=== PATIENT | female | born 1945 | race Caucasian/White ===

== ENCOUNTER 2021-03-16 21:25 | Outpatient (REF) | payer MEDICARE, SELFPAY ==
[2021-03-18 18:26] LABS: COVID-19 RT-PCR Result Not Detected ((See Note))
== END 2021-03-16 21:26 | disposition home or self-care (01) ==
LOC: LBN 21:25
PROVIDERS: Visit Provider Family Medicine
DX: Z20.822 Contact with and (suspected) exposure to COVID-19 (principal)
CPT/HCPCS: U0003

== ENCOUNTER 2021-04-09 15:14 | Outpatient (REF) | payer SELFPAY ==
[2021-04-09 16:12] LABS: Bilirubin Negative (Negative); Blood Moderate (Negative); Clarity Cloudy (Clear); Glucose Negative (Negative); Ketones Negative (Negative); Leukocyte Esterase Large (Negative); Nitrite Positive (Negative); Specific Gravity 1.025 (1.005-1.025); pH 7.5 (5-8)
[2021-04-09 16:19] LABS: Bacteria Many HPF (Negative); C & S Indicated? Yes; Casts Negative LPF (Negative); Crystals Negative HPF (Negative); Epithelial Cells Few HPF (Negative); Mucus Trace (Negative); WBC >50 HPF (0-5)
== END 2021-04-09 15:15 | disposition home or self-care (01) ==
LOC: LBN 15:14
PROVIDERS: Visit Provider Family Medicine
DX: N39.0 Urinary tract infection, site not specified (principal)
CPT/HCPCS: 87077; 81003; 81015; 87086; 87186

== ENCOUNTER 2021-04-29 11:55 | Outpatient (REF) | payer SELFPAY ==
[2021-04-29 14:40] LABS: Bilirubin Negative (Negative); Blood Negative (Negative); Clarity Clear (Clear); Glucose Negative (Negative); Ketones Negative (Negative); Leukocyte Esterase Negative (Negative); Nitrite Negative (Negative); Specific Gravity >= 1.030 (1.005-1.025); Urobilinogen 0.2 EU/dL (Up TO 0.2)
== END 2021-04-29 11:56 | disposition home or self-care (01) ==
LOC: LBN 11:55
PROVIDERS: Visit Provider Nurse Practitioner Family
DX: N39.0 Urinary tract infection, site not specified (principal)
CPT/HCPCS: 81003

== ENCOUNTER 2021-04-30 12:13 | Outpatient (REF) | payer SELFPAY ==
[2021-04-30 12:44] LABS: Abs Immature Grans 0.02 10^3/uL (0.0-0.06); Absolute Basophil Count 0.04 10^3/uL (0.0-0.2); Absolute Lymphocyte Count 1.06 10^3/uL (1.2-3.4); Absolute Monocyte Count 0.41 10^3/uL (0.1-0.8); Absolute Neutrophil Count 4.65 10^3/uL (1.2-6.7); Basophils % 0.6; Eosinophils % 1.6; HCT 34.6 % (36.0-46.0); HGB 10.2 g/dL (11.2-15.7); Immature Grans % 0.3; Lymphocytes % 16.9; MCH 24.6 pg (27.0-33.0); MCHC 29.5 % (32.0-36.0); MCV 83.6 fL (80-95); MPV 9.2 fL (8.0-11.0); Monocytes % 6.5; Neutrophils % 74.1; Nucleated RBC 0 %; Platelet Count 368 10^3/uL (130-400); RBC 4.14 10^6/uL (3.93-5.22); RDW 16.3 % (11.7-14.6); RDW-SD 49.8 fL; WBC 6.28 10^3/uL (4.4-10.8)
[2021-04-30 13:14] LABS: ALT 26 U/L (14-59); AST 17 U/L (15-37); Albumin 3.1 g/dL (3.4-5.0); Alkaline Phosphatase 98 U/L (46-116); Anion Gap 7.5 mmol/L (3-11); BUN 21 mg/dL (7-18); Bilirubin, Total 0.2 mg/dL (0.2-1.0); CO2 30.5 mmol/L (21.0-32.0); Calcium 8.8 mg/dL (8.5-10.1); Chloride 109 mmol/L (98-107); Estimated GFR 54.35 (mL/min/1.73m2); Glucose 149 mg/dL (74-106); Potassium 3.6 mmol/L (3.5-5.1); Sodium 147 mmol/L (136-145); Total Protein 6.5 g/dL (6.4-8.2)
== END 2021-04-30 12:14 | disposition home or self-care (01) ==
LOC: LBN 12:13
PROVIDERS: Visit Provider Nurse Practitioner Family
DX: N17.9 Acute kidney failure, unspecified (principal); M62.81 Muscle weakness (generalized)
CPT/HCPCS: 80053; 85025

== ENCOUNTER 2021-05-07 02:38 | Outpatient (CLI) | payer MEDICARE, BC, SELFPAY ==
--- NOTE | 2021-05-07 09:15 | DI.RAD_ITS ---
Exam(s) XR CHEST 2V PA LATERAL EXAM: XR CHEST 2V PA LATERAL CLINICAL HISTORY: LOW OXYGEN AND COUGH R05.9 TECHNIQUE: 2D digital imaging was performed. COMPARISON: No exams were available for comparison FINDINGS: MEDIASTINUM: Normal. HEART: Normal. PULMONARY VASCULATURE: Normal. LUNGS: Patchy infiltrate left upper lobe. Question of increased density in the right upper lobe. PLEURAL SPACE: No pneumothorax. Question tiny left pleural effusion. BONE:Unremarkable for age. IMPRESSION: Left upper lobe infiltrate. Question tiny left pleural effusion and question of patchy right upper l obe infiltrate.. DATA REPOSITORY: RADIATION DOSE DELIVERED:
== END 2021-05-07 02:58 ==
PROVIDERS: Visit Provider Nurse Practitioner Family
DX: R05.8 Other specified cough (principal); R09.02 Hypoxemia; R91.8 Other nonspecific abnormal finding of lung field
CPT/HCPCS: 71046

== ENCOUNTER 2021-05-24 14:20 | Outpatient (REF) | payer MEDICARE, SELFPAY ==
[2021-05-24 19:59] LABS: Abs Immature Grans 0.01 10^3/uL (0.0-0.06); Absolute Basophil Count 0.06 10^3/uL (0.0-0.2); Absolute Eosinophil Count 0.05 10^3/uL (0.0-0.7); Absolute Lymphocyte Count 1.94 10^3/uL (1.2-3.4); Absolute Monocyte Count 0.45 10^3/uL (0.1-0.8); Absolute Neutrophil Count 5.68 10^3/uL (1.2-6.7); Basophils % 0.7; Eosinophils % 0.6; HCT 46.8 % (36.0-46.0); HGB 12.9 g/dL (11.2-15.7); Immature Grans % 0.1; Lymphocytes % 23.7; MCH 23.5 pg (27.0-33.0); MCHC 27.6 % (32.0-36.0); MCV 85.1 fL (80-95); MPV 11.5 fL (8.0-11.0); Monocytes % 5.5; Neutrophils % 69.4; Nucleated RBC 0 %; Platelet Count 274 10^3/uL (130-400); RDW 17.8 % (11.7-14.6); RDW-SD 53.1 fL; WBC 8.19 10^3/uL (4.4-10.8)
[2021-05-24 20:09] LABS: Bilirubin Moderate (Negative); Blood Trace-intact (Negative); Clarity Cloudy (Clear); Glucose Negative (Negative); Ketones 15 mg/dL (Negative); Leukocyte Esterase Negative (Negative); Nitrite Negative (Negative); Specific Gravity >= 1.030 (1.005-1.025); pH 5.5 (5-8)
[2021-05-24 20:23] LABS: ALT 21 U/L (14-59); AST 18 U/L (15-37); Albumin 3.2 g/dL (3.4-5.0); Alkaline Phosphatase 113 U/L (46-116); Anion Gap 13.3 mmol/L (3-11); BUN 34 mg/dL (7-18); Bilirubin, Total 0.3 mg/dL (0.2-1.0); CO2 28.7 mmol/L (21.0-32.0); CREATININE 1.2 mg/dL (0.55-1.02); Calcium 9.1 mg/dL (8.5-10.1); Chloride 125 mmol/L (98-107); Epithelial Cells Few HPF (Negative); Estimated GFR 44.04 (mL/min/1.73m2); Glucose 100 mg/dL (74-106); Potassium 3.6 mmol/L (3.5-5.1); Total Protein 6.9 g/dL (6.4-8.2)
[2021-05-24 20:24] LABS: Bacteria Moderate HPF (Negative); C & S Indicated? Yes; Casts Negative LPF (Negative); Crystals Few Amorphous HPF (Negative); Mucus Negative (Negative)
[2021-05-24 20:26] LABS: Diff Comment RBC Morph Reviewed
[2021-05-24 20:27] LABS: Hypochromasia 1+
[2021-05-24 20:35] LABS: Sodium 167 mmol/L (136-145)
== END 2021-05-24 14:21 | disposition home or self-care (01) ==
LOC: LBN 14:20
PROVIDERS: Visit Provider Nurse Practitioner Family
DX: N17.9 Acute kidney failure, unspecified (principal); R50.81 Fever presenting with conditions classified elsewhere; R41.0 Disorientation, unspecified
CPT/HCPCS: 80053; 81003; 81015; 85025; 87086

== ENCOUNTER 2021-05-26 10:07 | Outpatient (REF) | payer SELFPAY ==
[2021-05-26 12:48] LABS: Anion Gap 13.3 mmol/L (3-11); BUN 34 mg/dL (7-18); CO2 27.7 mmol/L (21.0-32.0); CREATININE 1.2 mg/dL (0.55-1.02); Chloride 120 mmol/L (98-107); Estimated GFR 44.04 (mL/min/1.73m2); Glucose 202 mg/dL (74-106); Potassium 3.2 mmol/L (3.5-5.1)
[2021-05-26 12:51] LABS: Sodium 161 mmol/L (136-145)
== END 2021-05-26 10:08 | disposition home or self-care (01) ==
LOC: LBN 10:07
PROVIDERS: Visit Provider Family Medicine
DX: N17.9 Acute kidney failure, unspecified (principal)
CPT/HCPCS: 80048

== ENCOUNTER 2021-05-28 19:30 | Outpatient (REF) | payer SELFPAY ==
[2021-05-28 19:50] LABS: Anion Gap 7.4 mmol/L (3-11); BUN 16 mg/dL (7-18); CO2 30.6 mmol/L (21.0-32.0); CREATININE 0.9 mg/dL (0.55-1.02); Calcium 8.5 mg/dL (8.5-10.1); Chloride 110 mmol/L (98-107); Glucose 83 mg/dL (74-106); Potassium 3.2 mmol/L (3.5-5.1); Sodium 148 mmol/L (136-145)
== END 2021-05-28 19:31 | disposition home or self-care (01) ==
LOC: LBN 19:30
PROVIDERS: Visit Provider Family Medicine
DX: E87.0 Hyperosmolality and hypernatremia (principal)
CPT/HCPCS: 80048

== ENCOUNTER 2021-06-09 01:07 | Outpatient (CLI) | payer MEDICARE, BC, SELFPAY ==
--- NOTE | 2021-06-09 15:19 | DI.CT_ITS ---
Exam(s) CT HEAD WO EXAM: CT HEAD WO CLINICAL HISTORY: ALTERED MENTAL STATUS. TECHNIQUE: Imaging Protocol: Axial computed tomography images with coronal and sagittal reformatted images were created and reviewed COMPARISON: No exams were available for comparison FINDINGS: Ventricles and Extra axial spaces: Normal in size and morphology for the patient's age. Hemorrhage: None. Cerebral parenchyma: No evidence of an acute territorial infarct. There are areas of decreased atten uation in the white matter consistent with small vessel ischemic disease. Midline shift: None. Brainstem/Cerebellum: Normal. Calvarium: Normal. Visualized Paranasal sinuses/Mastoids: Clear. Soft Tissues: Unremarkable. IMPRESSION: No acute intracranial process. RADIATION DOSE DELIVERED: 637.45mGy.cm Total DLP DATA REPOSITORY: All CT scans at this facility are submitted to the National Radiology Data Registry (NRDR) Dose Index Registry (DIR) with the [employer] ([employer]). RADIATION OPTIMIZATION: All CT scans at this facility use at least one of these dose optimization te chniques: automated exposure control; mA and/or kV adjustment per patient size (includes targeted exa ms where dose is matched to clinical indication); or iterative reconstruction.
== END 2021-06-09 01:27 ==
PROVIDERS: Visit Provider Family Medicine
DX: R41.82 Altered mental status, unspecified (principal); X58.XXXA Exposure to other specified factors, initial encounter; E87.0 Hyperosmolality and hypernatremia; B37.9 Candidiasis, unspecified; N17.9 Acute kidney failure, unspecified
CPT/HCPCS: 80048; 70450; 85025

== ENCOUNTER 2021-06-19 12:05 | Inpatient (IN) | payer MEDICARE, BC, SELFPAY ==
[2021-06-19] VITALS (37 sets, daily range): BP systolic 95–127; BP diastolic 60–81; PULSE 74–97; RESP 7–24; TEMP 36.5–37.3; O2SAT 87–99
--- NOTE | 2021-06-19 12:15 | DI.CT_ITS ---
Exam(s) CT HEAD WO EXAM: CT HEAD WO CLINICAL HISTORY: AMS. TECHNIQUE: Imaging Protocol: Axial computed tomography images with coronal and sagittal reformatted images were created and reviewed COMPARISON: CT CT HEAD WO from 06/09/2021 FINDINGS: Hemorrhage: None. Cerebral parenchyma: Atrophy. White matter changes consistent with small vessel disease. Midline shift: None. Brainstem/Cerebellum: Normal. Calvarium: Normal. Visualized Paranasal sinuses/Mastoids: Clear. Ventricles and Extra axial spaces: Stable mild ventricular dilatation IMPRESSION: Stable atrophy and white matter changes. No acute abnormality. RADIATION DOSE DELIVERED: 618.8mGy.cm Total DLP 618.8mGy.cm Total DLP DATA REPOSITORY: All CT scans at this facility are submitted to the National Radiology Data Registry (NRDR) Dose Index Registry (DIR) with the [employer] ([employer]). RADIATION OPTIMIZATION: All CT scans at this facility use at least one of these dose optimization te chniques: automated exposure control; mA and/or kV adjustment per patient size (includes targeted exa ms where dose is matched to clinical indication); or iterative reconstruction.
--- NOTE | 2021-06-19 12:22 | DI.RAD_ITS ---
Exam(s) XR CHEST 1V IN DI DEPT EXAM: XR CHEST 1V IN DI DEPT CLINICAL HISTORY: AMS TECHNIQUE: 2D digital imaging was performed. COMPARISON: CR XR CHEST 2V PA LATERAL from 05/07/2021 FINDINGS: LUNGS: New densities left lung base. Vague densities left upper lobe with some improvement from the previous exam. Right lung clear. No pleural abnormality seen. HEART: Normal. MEDIASTINUM: Normal. BONES: Unremarkable. IMPRESSION: Left lower lobe infiltrate. DATA REPOSITORY: RADIATION DOSE DELIVERED:
[2021-06-19] MEDS: Normal Saline 1,000 ML 1000 ML IV (12:30)
[2021-06-19 12:42] LABS: Source Nasal/Nares
[2021-06-19 13:21] LABS: Bilirubin Moderate (Negative); Blood Small (Negative); Clarity Clear (Clear); Glucose Negative (Negative); Ketones Trace mg/dL (Negative); Leukocyte Esterase Negative (Negative); Nitrite Positive (Negative); Specific Gravity >= 1.030 (1.005-1.025); pH 5.5 (5-8)
[2021-06-19 13:29] LABS: COVID-19 PCR Negative (Negative)
[2021-06-19 13:37] LABS: Bacteria Many HPF (Negative); Crystals Negative HPF (Negative); Epithelial Cells Few HPF (Negative); Mucus Heavy (Negative); RBC 20-50 HPF (0-2); WBC >50 HPF (0-5)
[2021-06-19 13:38] LABS: C & S Indicated? Yes
[2021-06-19 13:55] LABS: Abs Immature Grans 0.05 10^3/uL (0.0-0.06); Absolute Basophil Count 0.03 10^3/uL (0.0-0.2); Absolute Eosinophil Count 0.01 10^3/uL (0.0-0.7); Absolute Lymphocyte Count 1.24 10^3/uL (1.2-3.4); Absolute Monocyte Count 0.64 10^3/uL (0.1-0.8); Absolute Neutrophil Count 7.06 10^3/uL (1.2-6.7); Basophils % 0.3; Eosinophils % 0.1; HCT 50.5 % (36.0-46.0); Immature Grans % 0.6; Lymphocytes % 13.7; MCHC 27.7 % (32.0-36.0); MCV 86.6 fL (80-95); MPV 12.2 fL (8.0-11.0); Monocytes % 7.1; Neutrophils % 78.2; Nucleated RBC 0 %; Platelet Count 217 10^3/uL (130-400); RBC 5.83 10^6/uL (3.93-5.22); RDW 20.9 % (11.7-14.6); RDW-SD 62.8 fL; WBC 9.03 10^3/uL (4.4-10.8)
--- NOTE | 2021-06-19 13:58 | W.ED.GENAD ---
Discharge Plan Disposition Patient Disposition: [facility] INPATIENT Condition: Serious Discharge Details Clinical Impression: Hypernatremia, Acute UTI, Elevated troponin Primary Care Provider: Matti Li ED Provider: Stuart [facility] Home Meds and New Rx's Prescriptions: No Action carbidopa-levodopa [Sinemet] 25-100 mg tablet 1 tab PO TID Qty: 90 RF: 0 coenzyme Q10 100 mg capsule 100 mg PO DAILY RF: 0 Fleet Enema 19-7 gram/118 mL enema 118 ml NM ONCE PRNRF: 0 bisacodyl [Dulcolax (bisacodyl)] 10 mg suppository 10 mg NM ONCE PRNRF: 0 latanoprost 0.005 % drops 1 drp ophthalmic (eye) QPM RF: 0 lorazepam 0.5 mg tablet 0.5 mg PO DAILY RF: 0 lorazepam 0.5 mg tablet 0.5 mg PO BID RF: 0 magnesium hydroxide [Dulcolax (magnesium hydroxide)] 400 mg/5 mL suspension 30 ml PO DAILY PRNRF: 0 mirtazapine 15 mg tablet 15 mg PO QHS RF: 0 omeprazole 20 mg tablet,delayed release (DR/EC) 20 mg PO BID RF: 0 risperidone [Risperdal] 1 mg tablet 1 mg PO BID RF: 0 sertraline 50 mg tablet 50 mg PO DAILY RF: 0 docusate sodium 50 mg Tablet 100 mg PO BID RF: 0 Medical Decision Making This is a 75-year-old female being sent to the ER from local [facility] for concern of dehydration. Sister reports that she has catatonic episodes when not taking her psychiatric medications. Reports concern that she is not eating or taking her medications as directed and not receiving the care that she requires. Patient opens her eyes but is nonverbal with me. Very difficult to obtain HPI or review of symptoms from the patient herself. O2 sat is 89% upon presentation, placed on 2 L nasal cannula. Given her presentation, plan is to obtain IV access and give IV fluid, initiate cardiac work-up including CT imaging of her brain given the potential altered mental status. As soon as her Covid swab was negative, patient's sister was allowed back in the exam room. At this time patient was witnessed moving all extremities and speaking with her sister Apparently there was an issue with the initial blood draw, lab had to, redraw the patient. This in turn delayed laboratory values and care Laboratory values reveal a white blood cell count of 9.03 hemoglobin 14.0 hematocrit 50.5 platelet count 217. Lactate of 1.8, sodium critical at 175. Creatinine of 1.5 magnesium 2.7 troponin 64 TSH 1.02 urine reveals positive nitrate, greater than 50 white cells. Culture pending. Given her UTI blood culture obtained and will give 1 g IV Rocephin Head CT is unremarkable Chest X ray read by radiology as concern for left lower lobe infiltrate. Patient already receiving IV Rocephin, awaiting procalcitonin, plan is to admit her given her hypernatremia, elevated troponin, UTI, can follow her closely and add on additional antibiotics if indicated. Case discussed with Dr. Cross who is agreeable to admission and will write admission orders Medical Records Medical records reviewed: Yes I reviewed the patient's medical records. Imaging Data Radiologic Study: Attestation: I personally reviewed and interpreted this imaging study as follows: Imaging: CT Scan Radiologist's impression: PROCEDURE INFORMATION: Exam: CT Head Without Contrast Exam date and time: 06/19/2021 12:25 PM Age: 75 years old Clinical indication: Altered mental status/memory loss TECHNIQUE: Imaging protocol: Computed tomography of the head without contrast. COMPARISON: CT HEAD WO 06/09/2021 3:16 PM FINDINGS: Brain: Cerebral volume loss noted. Scattered areas of decreased attenuation in the deep periventricular white matter consistent with small vessel ischemic change. No evidence for acute intracranial hemorrhage. Cerebral ventricles: No ventriculomegaly. Paranasal sinuses: Visualized sinuses are unremarkable. No fluid levels. Mastoid air cells: Visualized mastoid air cells are well aerated. Bones/joints: Unremarkable. No acute fracture. Soft tissues: Unremarkable. IMPRESSION: Senescent changes noted. No acute intracranial abnormality. Radiologic Study #2: Attestation: I personally reviewed and interpreted this imaging study as follows: Imaging: X-Ray Radiologist's impression: PROCEDURE INFORMATION: Exam: XR Chest Exam date and time: 06/19/2021 1:59 PM Age: 75 years old Clinical indication: Cough TECHNIQUE: Imaging protocol: XR of the chest. Views: 1 view. COMPARISON: CR XR CHEST 2V PA LATERAL 05/07/2021 9:03 AM FINDINGS: Lungs: Previously seen left upper lobe infiltrate appears resolved. There are some minimal coarse increased left lower lobe markings seen medially. There is some mild hazy pleural opacity seen in the left mid and upper lung laterally. Pleural spaces: See Lungs finding. Heart/Mediastinum: Unremarkable. No cardiomegaly. Bones/joints: Unremarkable. Soft tissues: Right chest wall surgical clip seen laterally. IMPRESSION: Concern for left lower lobe infiltrate. Possible pleural thickening left upper lobe. Lab Data Lab results reviewed: Yes I reviewed the patient's lab results. Labs: 06/19/21 14:41 Blood Blood Culture - Pending 06/19/21 14:41 Blood Blood Culture - Pending 06/19/21 12:50 Urine - Reflex from Ua Urine Culture - Pending Laboratory Tests Range/Units 06/19/21 06/19/21 06/19/21 12:32 12:42 12:42 WBC Cancelled RBC Cancelled Hgb Cancelled Hct Cancelled MCV Cancelled MCH Cancelled MCHC Cancelled RDW Cancelled Plt Count Cancelled MPV Cancelled Immature Gran % Cancelled Neutrophils % Cancelled Band Neutrophils % Cancelled Lymphocytes % Cancelled Atypical Lymphs % Cancelled Monocytes % Cancelled Eosinophils % Cancelled Basophils % Cancelled Metamyelocytes % Cancelled Myelocytes % Cancelled Promyelocytes % Cancelled Other Cells % Cancelled Nucleated RBC % Cancelled Absolute Neutrophils Cancelled Absolute Lymphocytes Cancelled Absolute Monocytes Cancelled Absolute Eosinophils Cancelled Absolute Basophils Cancelled RBC Morphology Cancelled Polychromasia Cancelled Hypochromasia Cancelled Poikilocytosis Cancelled Basophilic Stippling Cancelled Anisocytosis Cancelled Microcytosis Cancelled Macrocytosis Cancelled Spherocytes Cancelled Tear Drop Cells Cancelled Ovalocytes Cancelled Stomatocytes Cancelled [place] Bodies Cancelled Stryker Cells/Echinocytes Cancelled Acanthocytes (Spur) Cancelled Schistocytes Cancelled VBG Lactate (0.6-1.4) mmol/L Sodium Cancelled Potassium Cancelled Chloride Cancelled Carbon Dioxide Cancelled Anion Gap Cancelled BUN Cancelled Creatinine Cancelled Estimated GFR/1.73 m2 Cancelled Glucose Cancelled Calcium Cancelled Magnesium Cancelled Total Bilirubin Cancelled AST Cancelled ALT Cancelled Alkaline Phosphatase Cancelled Troponin I Cancelled Total Protein Cancelled Albumin Cancelled TSH Cancelled Urine Color (Yellow) Urine Clarity (Clear) Urine pH (5-8) Ur Specific [place] (1.005-1.025) Urine Protein (Negative) mg/dL Urine Ketones (Negative) mg/dL Urine Blood (Negative) Urine Nitrite (Negative) Urine Bilirubin (Negative) Urine Urobilinogen (Up TO 0.2) EU/dL Ur Leukocyte Esterase (Negative) Urine RBC (0-2) HPF Urine WBC (0-5) HPF Ur Epithelial Cells (Negative) HPF Urine Crystals (Negative) HPF Urine Bacteria (Negative) HPF Urine Casts (Negative) LPF Urine Mucus (Negative) Ur Culture Indicated? Urine Glucose (Negative) mg/dL COVID-19 Source Nasal/Nares SARS-CoV-2 (PCR) (Negative) Negative Range/Units 06/19/21 06/19/21 06/19/21 12:50 13:47 13:47 WBC 9.03 RBC 5.83 H Hgb 14.0 Hct 50.5 H MCV 86.6 MCH 24.0 L MCHC 27.7 L RDW 20.9 H Plt Count 217 MPV 12.2 H Immature Gran % 0.6 Neutrophils % 78.2 Band Neutrophils % Lymphocytes % 13.7 Atypical Lymphs % Monocytes % 7.1 Eosinophils % 0.1 Basophils % 0.3 Metamyelocytes % Myelocytes % Promyelocytes % Other Cells % Nucleated RBC % 0 Absolute Neutrophils 7.06 H Absolute Lymphocytes 1.24 Absolute Monocytes 0.64 Absolute Eosinophils 0.01 Absolute Basophils 0.03 RBC Morphology See Below Polychromasia Hypochromasia Poikilocytosis Basophilic Stippling Anisocytosis 1+ Microcytosis Macrocytosis Spherocytes Tear Drop Cells Ovalocytes Stomatocytes [place] Bodies Stryker Cells/Echinocytes Acanthocytes (Spur) Schistocytes VBG Lactate (0.6-1.4) mmol/L Sodium 175 H* Potassium 3.5 Chloride 134 H Carbon Dioxide 29.3 Anion Gap 11.7 H BUN 40 H Creatinine 1.5 H Estimated GFR/1.73 m2 34.04 Glucose 115 H Calcium 8.4 L Magnesium 2.7 H Total Bilirubin 0.4 AST 12 L ALT 7 L Alkaline Phosphatase 95 Troponin I 64 H* Total Protein 6.7 Albumin 2.5 L TSH 1.02 Urine Color (Yellow) Yellow Urine Clarity (Clear) Clear Urine pH (5-8) 5.5 Ur Specific [place] (1.005-1.025) >= 1.030 H Urine Protein (Negative) mg/dL 30 H Urine Ketones (Negative) mg/dL Trace H Urine Blood (Negative) Small H Urine Nitrite (Negative) Positive H Urine Bilirubin (Negative) Moderate H Urine Urobilinogen (Up TO 0.2) EU/dL 1.0 H Ur Leukocyte Esterase (Negative) Negative Urine RBC (0-2) HPF 20-50 H Urine WBC (0-5) HPF >50 H Ur Epithelial Cells (Negative) HPF Few Urine Crystals (Negative) HPF Negative Urine Bacteria (Negative) HPF Many Urine Casts (Negative) LPF Comment Urine Mucus (Negative) Heavy Ur Culture Indicated? Yes Urine Glucose (Negative) mg/dL Negative COVID-19 Source SARS-CoV-2 (PCR) (Negative) Range/Units 06/19/21 06/19/21 15:05 15:05 WBC RBC Hgb Hct MCV MCH MCHC RDW Plt Count MPV Immature Gran % Neutrophils % Band Neutrophils % Lymphocytes % Atypical Lymphs % Monocytes % Eosinophils % Basophils % Metamyelocytes % Myelocytes % Promyelocytes % Other Cells % Nucleated RBC % Absolute Neutrophils Absolute Lymphocytes Absolute Monocytes Absolute Eosinophils Absolute Basophils RBC Morphology Polychromasia Hypochromasia Poikilocytosis Basophilic Stippling Anisocytosis Microcytosis Macrocytosis Spherocytes Tear Drop Cells Ovalocytes Stomatocytes [place]at [place] Bodies Jayson Cells/Echinocytes Acanthocytes (Spur) Schistocytes VBG Lactate (0.6-1.4) mmol/L 1.8 H Sodium 177 H* Potassium 3.1 L Chloride 134 H Carbon Dioxide 28.6 Anion Gap 14.4 H BUN 39 H Creatinine 1.2 H Estimated GFR/1.73 m2 44.04 Glucose 118 H Calcium 8.8 Magnesium Total Bilirubin AST ALT Alkaline Phosphatase Troponin I Total Protein Albumin TSH Urine Color (Yellow) Urine Clarity (Clear) Urine pH (5-8) Ur Specific [place] (1.005-1.025) Urine Protein (Negative) mg/dL Urine Ketones (Negative) mg/dL Urine Blood (Negative) Urine Nitrite (Negative) Urine Bilirubin (Negative) Urine Urobilinogen (Up TO 0.2) EU/dL Ur Leukocyte Esterase (Negative) Urine RBC (0-2) HPF Urine WBC (0-5) HPF Ur Epithelial Cells (Negative) HPF Urine Crystals (Negative) HPF Urine Bacteria (Negative) HPF Urine Casts (Negative) LPF Urine Mucus (Negative) Ur Culture Indicated? Urine Glucose (Negative) mg/dL COVID-19 Source SARS-CoV-2 (PCR) (Negative) ECG Data Attestation: I personally reviewed and interpreted this ECG (s) as follows: Interpretation: Please see official report by Dr. Cook. Sinus rhythm, ventricular rate of 87. Nonspecific ST depression, no STEMI. HPI General Mode of arrival: EMS. Date/Time Provider Initiated Documentation: 06/19/21 12:18. Limitations to Documentation: altered mental status. Information obtained by: family (Sister) and EMS. HPI Narrative: This is a 75-year-old female who is a full code, presenting from [facility] via EMS, past medical history that includes bipolar type II disorder, palliative care patient, anxiety, Parkinson's, sent to the ER from rehab for concern of dehydration, they were unable to obtain IV access there. I was able to speak with patient sister who was present, reports the patient fell back in March and has had a steady decline ever since. When she is not taking her psychiatric medications she does have these catatonic episodes. She is concerned that there have been multiple medication changes over the past couple of months, wonders if she is taking any medications as directed, and does report decreased p.o. intake. She states just a couple of days ago she was talkative but now is really not talkative at all. She states that she is concerned that she is not receiving the level of care that she requires at the rehab facility and is trying to get her into another rehab facility. Patient blinks, opens her eyes, but is not verbal with me. Related Data Home Medications Medication Instructions Recorded Confirmed bisacodyl 10 mg rectal suppository 10 mg NM ONCE PRN 04/20/21 06/16/21 coenzyme Q10 100 mg capsule 100 mg PO DAILY 04/20/21 06/19/21 latanoprost 0.005 % eye drops 1 drp OPHTHALMIC (EYE) QPM ml 04/20/21 06/19/21 lorazepam 0.5 mg tablet 0.5 mg PO BID tab 04/20/21 06/19/21 lorazepam 0.5 mg tablet 0.5 mg PO DAILY 04/20/21 06/19/21 magnesium hydroxide 400 mg/5 mL 30 ml PO DAILY PRN ml 04/20/21 06/16/21 oral suspension mirtazapine 15 mg tablet 15 mg PO QHS 04/20/21 06/19/21 omeprazole 20 mg tablet,delayed 20 mg PO BID 04/20/21 06/19/21 release risperidone 1 mg tablet 1 mg PO BID 04/20/21 06/19/21 sodium phosphates 19 gram-7 118 ml NM ONCE PRN 04/20/21 06/16/21 gram/118 mL enema carbidopa 25 mg-levodopa 100 mg 1 tab PO TID #90 tab 06/16/21 06/19/21 tablet docusate sodium 100 mg PO BID 06/19/21 06/19/21 sertraline 50 mg PO DAILY 06/19/21 06/19/21 Previous Rx's Medication Instructions Recorded carbidopa 25 mg-levodopa 100 mg 1 tab PO TID #90 tab 06/16/21 tablet Allergies Allergy/AdvReac Type Severity Reaction Status Date / Time erythromycin base Allergy Intermediate Verified 06/19/21 12:53 ragweed pollen Allergy Intermediate Verified 06/19/21 12:53 Sulfa (Sulfonamide Allergy Intermediate Verified 06/19/21 12:53 Antibiotics) General Stated Complaint: AMS/LOC RADHA: 2 Review of Systems Unobtainable due to mental status PFSH All Active Problems (Updated 06/19/21 @ 15:42 by FARNAZ Ruelas) Hypernatremia (Acute) Acute UTI (Acute) Elevated troponin (Acute) Bipolar 2 disorder, major depressive episode (Chronic) Dr Coates, [facility] office Health care proxy on file (Acute) Flat affect (Acute) Shuffling gait (Acute) Tremor (Acute) History of rhabdomyolysis (Acute) 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 of catatonia hospitalized for same in past Psychiatric illness (Chronic) for many years 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 Brother No problems noted. Sister No problems noted. 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 Pets and animals: Yes Pets and animals: dog(s) Current gender identity: female What is your relationship status?: never How often do you talk on the phone with friends or family?: three or more times per week How often do you get together with friends or relatives?: twice per week Panel score (0-1 are the most socially isolated patients): 1 What type of physical activity do you participate in: none and sedentary lifestyle Special ayaka needs: No Seatbelt use: always Working smoke detector in home: Yes Fire extinguisher in home: Yes In current or past relationships, have you been: made to feel afraid Do you feel safe in your relationship?: Yes Additional Social history: Tatyana spoke very little. Her roommate says she says only a handful of words all day. When I was present, her sister Bryan called. She told me that she speaks to Tatyana every day. She explained that Tatyana had recently moved into a new apartment. She fell and was down for some hours. She went to the local hospital and was found to have rhabdo and SHEREEN. Tatyana falls frequently. Bryan asks if her Parkinson's Disease is due to psychiatric medications. Tatyana has struggled with mental illness for years. She has a psychiatrist. She has been hospitalized multiple times in the past. She is prone to episodes of catatonia. Bryan is very committed to advocating for her sister and providing as much care as she can, given limitations of a bad back. (NO lifting,etc). Exam Const General: comfortable, no acute distress and frail appearing Orientation: alert, awake and oriented to person HENAK Head: normal to inspection, normocephalic and atraumatic Face and sinus: normal facial exam Mouth: moist mucous membranes and moist mucous membranes abnormal (dry) Eyes General: appearance normal, both eyes and all related structures Conjunctivae: conjunctivae normal Neck Neck: normal visual inspection, no lymphadenopathy, trachea midline and supple Resp Effort & Inspection: normal respiratory effort and able to speak in complete sentences Auscultation: diminished lung sounds bilaterally in the lower lung ferro Cardio Rate: regular rate Rhythm: regular rhythm GI Inspection: normal to inspection Palpation: soft and nontender Auscultation: normal bowel sounds Back/Spine/Pelvis Back: No back tenderness Skin General skin exam: no rashes or lesions noted Neuro General: patient alert, patient awake, moves all extremities and no focal motor deficits Extrem General: normal to inspection and capillary refill normal Psych Appearance: grossly normal Mental Status: mental status grossly normal Course Vital Signs Vital signs: Vital Signs Temperature 37.3 C 06/19/21 12:07 Pulse 97 H 06/19/21 12:07 Respiratory Rate 21 06/19/21 12:07 Blood Pressure 113/74 06/19/21 12:07 Pulse Oximetry 87 L 06/19/21 12:07 Temperature 37.3 C 06/19/21 12:07 Temperature Source Oral 06/19/21 12:07 Pulse 80 06/19/21 13:31 Pulse 82 06/19/21 13:50 Respiratory Rate 9 L 06/19/21 13:50 Respiratory Effort 06/19/21 13:46 Respiratory Pattern Normal 06/19/21 13:46 Blood Pressure 112/61 06/19/21 13:31 Blood Pressure Mean 72 06/19/21 13:31 Blood Pressure Position Supine 06/19/21 12:07 Pulse Oximetry 97 06/19/21 13:50 Oxygen Delivery Method Nasal Cannula 06/19/21 12:15 Oxygen Flow Rate 1.5 06/19/21 12:15 Lab/Test Results Lab/Test Results: 06/19/21 12:50 Urine - Reflex from Ua Urine Culture - Pending Laboratory Tests Range/Units 06/19/21 06/19/21 06/19/21 12:32 12:42 12:42 WBC Cancelled RBC Cancelled Hgb Cancelled Hct Cancelled MCV Cancelled MCH Cancelled MCHC Cancelled RDW Cancelled Plt Count Cancelled MPV Cancelled Immature Gran % Cancelled Neutrophils % Cancelled Band Neutrophils % Cancelled Lymphocytes % Cancelled Atypical Lymphs % Cancelled Monocytes % Cancelled Eosinophils % Cancelled Basophils % Cancelled Metamyelocytes % Cancelled Myelocytes % Cancelled Promyelocytes % Cancelled Other Cells % Cancelled Nucleated RBC % Cancelled Absolute Neutrophils Cancelled Absolute Lymphocytes Cancelled Absolute Monocytes Cancelled Absolute Eosinophils Cancelled Absolute Basophils Cancelled RBC Morphology Cancelled Polychromasia Cancelled Hypochromasia Cancelled Poikilocytosis Cancelled Basophilic Stippling Cancelled Anisocytosis Cancelled Microcytosis Cancelled Macrocytosis Cancelled Spherocytes Cancelled Tear Drop Cells Cancelled Ovalocytes Cancelled Stomatocytes Cancelled [place] Bodies Cancelled Stryker Cells/Echinocytes Cancelled Acanthocytes (Spur) Cancelled Schistocytes Cancelled Sodium Cancelled Potassium Cancelled Chloride Cancelled Carbon Dioxide Cancelled Anion Gap Cancelled BUN Cancelled Creatinine Cancelled Estimated GFR/1.73 m2 Cancelled Glucose Cancelled Calcium Cancelled Magnesium Cancelled Total Bilirubin Cancelled AST Cancelled ALT Cancelled Alkaline Phosphatase Cancelled Troponin I Cancelled Total Protein Cancelled Albumin Cancelled TSH Cancelled Urine Color (Yellow) Urine Clarity (Clear) Urine pH (5-8) Ur Specific [place] (1.005-1.025) Urine Protein (Negative) mg/dL Urine Ketones (Negative) mg/dL Urine Blood (Negative) Urine Nitrite (Negative) Urine Bilirubin (Negative) Urine Urobilinogen (Up TO 0.2) EU/dL Ur Leukocyte Esterase (Negative) Urine RBC (0-2) HPF Urine WBC (0-5) HPF Ur Epithelial Cells (Negative) HPF Urine Crystals (Negative) HPF Urine Bacteria (Negative) HPF Urine Casts (Negative) LPF Urine Mucus (Negative) Ur Culture Indicated? Urine Glucose (Negative) mg/dL COVID-19 Source Nasal/Nares SARS-CoV-2 (PCR) (Negative) Negative Range/Units 06/19/21 06/19/21 12:50 13:47 WBC 9.03 RBC 5.83 H Hgb 14.0 Hct 50.5 H MCV 86.6 MCH 24.0 L MCHC 27.7 L RDW 20.9 H Plt Count 217 MPV 12.2 H Immature Gran % 0.6 Neutrophils % 78.2 Band Neutrophils % Lymphocytes % 13.7 Atypical Lymphs % Monocytes % 7.1 Eosinophils % 0.1 Basophils % 0.3 Metamyelocytes % Myelocytes % Promyelocytes % Other Cells % Nucleated RBC % 0 Absolute Neutrophils 7.06 H Absolute Lymphocytes 1.24 Absolute Monocytes 0.64 Absolute Eosinophils 0.01 Absolute Basophils 0.03 RBC Morphology Polychromasia Hypochromasia Poikilocytosis Basophilic Stippling Anisocytosis Microcytosis Macrocytosis Spherocytes Tear Drop Cells Ovalocytes Stomatocytes [place] Bodies Jayson Cells/Echinocytes Acanthocytes (Spur) Schistocytes Sodium Potassium Chloride Carbon Dioxide Anion Gap BUN Creatinine Estimated GFR/1.73 m2 Glucose Calcium Magnesium Total Bilirubin AST ALT Alkaline Phosphatase Troponin I Total Protein Albumin TSH Urine Color (Yellow) Yellow Urine Clarity (Clear) Clear Urine pH (5-8) 5.5 Ur Specific [place] (1.005-1.025) >= 1.030 H Urine Protein (Negative) mg/dL 30 H Urine Ketones (Negative) mg/dL Trace H Urine Blood (Negative) Small H Urine Nitrite (Negative) Positive H Urine Bilirubin (Negative) Moderate H Urine Urobilinogen (Up TO 0.2) EU/dL 1.0 H Ur Leukocyte Esterase (Negative) Negative Urine RBC (0-2) HPF 20-50 H Urine WBC (0-5) HPF >50 H Ur Epithelial Cells (Negative) HPF Few Urine Crystals (Negative) HPF Negative Urine Bacteria (Negative) HPF Many Urine Casts (Negative) LPF Comment Urine Mucus (Negative) Heavy Ur Culture Indicated? Yes Urine Glucose (Negative) mg/dL Negative COVID-19 Source SARS-CoV-2 (PCR) (Negative)
[2021-06-19 14:15] LABS: Anisocytosis 1+; Diff Comment RBC Morph Reviewed
[2021-06-19 14:17] LABS: ALT 7 U/L (14-59); AST 12 U/L (15-37); Albumin 2.5 g/dL (3.4-5.0); Alkaline Phosphatase 95 U/L (46-116); Anion Gap 11.7 mmol/L (3-11); BUN 40 mg/dL (7-18); Bilirubin, Total 0.4 mg/dL (0.2-1.0); CO2 29.3 mmol/L (21.0-32.0); CREATININE 1.5 mg/dL (0.55-1.02); Calcium 8.4 mg/dL (8.5-10.1); Chloride 134 mmol/L (98-107); Estimated GFR 34.04 (mL/min/1.73m2); Glucose 115 mg/dL (74-106); Magnesium 2.7 mg/dL (1.8-2.4); Potassium 3.5 mmol/L (3.5-5.1); TSH (W/Ref FT4) 1.02 uIU/mL (0.36-3.74); Total Protein 6.7 g/dL (6.4-8.2)
[2021-06-19 14:21] LABS: Sodium 175 mmol/L (136-145)
[2021-06-19 14:22] LABS: Troponin I 64 ng/L (<or=60)
--- NOTE | 2021-06-19 14:34 | DI.VRAD_ITS ---
PROCEDURE INFORMATION: Exam: CT Head Without Contrast Exam date and time: 06/19/2021 12:25 PM Age: 75 years old Clinical indication: Altered mental status/memory loss TECHNIQUE: Imaging protocol: Computed tomography of the head without contrast. COMPARISON: CT HEAD WO 06/09/2021 3:16 PM FINDINGS: Brain: Cerebral volume loss noted. Scattered areas of decreased attenuation in the deep periventricular white matter consistent with small vessel ischemic change. No evidence for acute intracranial hemorrhage. Cerebral ventricles: No ventriculomegaly. Paranasal sinuses: Visualized sinuses are unremarkable. No fluid levels. Mastoid air cells: Visualized mastoid air cells are well aerated. Bones/joints: Unremarkable. No acute fracture. Soft tissues: Unremarkable. IMPRESSION: Senescent changes noted. No acute intracranial abnormality. Dictated and Authenticated by: Yaneth Teixeira MD. Ordering:JAYCOB Davidson MD
--- NOTE | 2021-06-19 14:36 | DI.VRAD_ITS ---
PROCEDURE INFORMATION: Exam: XR Chest Exam date and time: 06/19/2021 1:59 PM Age: 75 years old Clinical indication: Cough TECHNIQUE: Imaging protocol: XR of the chest. Views: 1 view. COMPARISON: CR XR CHEST 2V PA LATERAL 05/07/2021 9:03 AM FINDINGS: Lungs: Previously seen left upper lobe infiltrate appears resolved. There are some minimal coarse increased left lower lobe markings seen medially. There is some mild hazy pleural opacity seen in the left mid and upper lung laterally. Pleural spaces: See Lungs finding. Heart/Mediastinum: Unremarkable. No cardiomegaly. Bones/joints: Unremarkable. Soft tissues: Right chest wall surgical clip seen laterally. IMPRESSION: Concern for left lower lobe infiltrate. Possible pleural thickening left upper lobe. Dictated and Authenticated by: Yaneth Teixeira MD. Ordering:JAYCOB Davidson MD
--- NOTE | 2021-06-19 14:56 | W.PM.HP.N ---
Date of service: 06/19/21 Time of Service: 16:02 Assessment and Plan Assessment and plan (1) Hypernatremia: Start date: 06/19/21 Start time: 16:05 Status: Acute Assessment and plan: D/t severe dehydration Will hydrated with NS Check serial BMP Monitor on telemetry while normalizing sodium can d/c teley when sodium normal (2) Acute UTI: Start date: 06/19/21 Start time: 16:06 Status: Acute Assessment and plan: Found to have positive nitrates and leuk est Initiated on ceftriaxone Urine cx pending BC pending Question of PNA Clinically low suspicion will treat with ceftriaxone at this time only. (3) Elevated troponin: Start date: 06/19/21 Start time: 16:08 Status: Acute Assessment and plan: Trop leaking likely d/t dehydration will follow serial trops and monitor. 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 Cross History of Present Illness History of Present Illness Chief Complaint: Dehydration, UTI, ?PNA Narrative: 75 y.o female with PMH of multiple psychiatric disorders, parkinson's disease, presented to [facility] ED from local long-term with concerns for dehydration. In the ED patient was found to have serum sodium of 177, and given a liter, potassium 3.1, anion gap 14.4, BUN 39 creatinine 1.2 procal 0.1. CXR with concern for LLL infiltrate u/a positive for nitrates and leuk est. She was asked to be admitted to [facility] for further management. Given a bolus in ED. Will give NS at 125 an hour with serial BMP. Trop was also elevated at 64, will repeat, likely leak d/t dehydration. Initiated on ceftriaxone will continue on the floor; for both urine and pulmonary. She was acting catatonic, continues to, flat affect. Review of Systems All systems reviewed & are unremarkable except as noted in HPI and below PFSH All Active Problems (Updated 06/19/21 @ 16:05 by Jennifer Peck, KHALIF) Discharge planning issues (Acute) DVT prophylaxis (Acute) Hypernatremia (Acute) Acute UTI (Acute) Elevated troponin (Acute) Bipolar 2 disorder, major depressive episode (Chronic) Dr Coates, [facility], [place] office Health care proxy on file (Acute) Flat affect (Acute) Shuffling gait (Acute) Tremor (Acute) History of rhabdomyolysis (Acute) 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 of catatonia hospitalized for same in past Psychiatric illness (Chronic) for many years Parkinsonism due to drugs (Chronic) psychiatric medications Frequent falls (Acute) Palliative care patient (Acute) group home resident (Acute) Malignant neoplasm of right breast (Chronic) in remission Anxiety (Acute) Medical History Acute kidney failure Dysphagia, oropharyngeal phase GERD (gastroesophageal reflux disease) Glaucoma Major depressive disorder Osteoporosis 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 Brother No problems noted. Sister No problems noted. 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 Pets and animals: Yes Pets and animals: dog(s) Current gender identity: female What is your relationship status?: never How often do you talk on the phone with friends or family?: three or more times per week How often do you get together with friends or relatives?: twice per week Panel score (0-1 are the most socially isolated patients): 1 What type of physical activity do you participate in: none and sedentary lifestyle Special ayaka needs: No Seatbelt use: always Working smoke detector in home: Yes Fire extinguisher in home: Yes In current or past relationships, have you been: made to feel afraid Do you feel safe in your relationship?: Yes Additional Social history: Tatyana spoke very little. Her roommate says she says only a handful of words all day. When I was present, her sister Bryan called. She told me that she speaks to Tatyana every day. She explained that Tatyana had recently moved into a new apartment. She fell and was down for some hours. She went to the local hospital and was found to have rhabdo and SHEREEN. Tatyana falls frequently. Bryan asks if her Parkinson's Disease is due to psychiatric medications. Tatyana has struggled with mental illness for years. She has a psychiatrist. She has been hospitalized multiple times in the past. She is prone to episodes of catatonia. Bryan is very committed to advocating for her sister and providing as much care as she can, given limitations of a bad back. (NO lifting,etc). Meds Allergies and Home Medications Allergies Allergy/AdvReac Type Severity Reaction Status Date / Time erythromycin base Allergy Intermediate Verified 06/19/21 12:53 ragweed pollen Allergy Intermediate Verified 06/19/21 12:53 Sulfa (Sulfonamide Allergy Intermediate Verified 06/19/21 12:53 Antibiotics) Home Medications Medication Instructions Recorded Confirmed Type bisacodyl 10 mg rectal suppository 10 mg AL ONCE PRN 04/20/21 06/16/21 History coenzyme Q10 100 mg capsule 100 mg PO DAILY 04/20/21 06/19/21 History latanoprost 0.005 % eye drops 1 drp OPHTHALMIC (EYE) QPM ml 04/20/21 06/19/21 History lorazepam 0.5 mg tablet 0.5 mg PO BID tab 04/20/21 06/19/21 History lorazepam 0.5 mg tablet 0.5 mg PO DAILY 04/20/21 06/19/21 History magnesium hydroxide 400 mg/5 mL 30 ml PO DAILY PRN ml 04/20/21 06/16/21 History oral suspension mirtazapine 15 mg tablet 15 mg PO QHS 04/20/21 06/19/21 History omeprazole 20 mg tablet,delayed 20 mg PO BID 04/20/21 06/19/21 History release risperidone 1 mg tablet 1 mg PO BID 04/20/21 06/19/21 History sodium phosphates 19 gram-7 118 ml AL ONCE PRN 04/20/21 06/16/21 History gram/118 mL enema carbidopa 25 mg-levodopa 100 mg 1 tab PO TID #90 tab 06/16/21 06/19/21 Rx tablet docusate sodium 100 mg PO BID 06/19/21 06/19/21 History sertraline 50 mg PO DAILY 06/19/21 06/19/21 History Exam Const General: cooperative, comfortable and no acute distress Orientation: alert, awake and oriented to person [facility] Mouth: mucous membranes dry and moist mucous membranes abnormal Eyes Eyelids: eyelids normal Pupils: PERRL EOM: EOM intact bilaterally Neck Neck: normal visual inspection and no JVD Lymphatic: no lymphadenopathy noted Resp Effort & Inspection: normal respiratory effort Auscultation: clear to auscultation bilaterally Cardio Jugular venous pressure: no JVD Rhythm: regular rhythm Heart Sounds: S1 normal GI Auscultation: normal bowel sounds General: No CVA tenderness and deferred Skin General skin exam: no rashes or lesions noted Neuro General: patient alert, patient awake, not oriented x3 and oriented Patient Orientation: Person Speech: speech normal Gait: normal gait Extrem General: normal to inspection, full ROM and no clubbing, cyanosis or edema Psych Affect: normal affect Insight: poor Judgment: poor Results Labs Result diagrams: 06/19/21 13:47 06/19/21 15:05 Labs: Laboratory Results - last 24 hr 06/19/21 06/19/21 06/19/21 12:32 12:42 12:42 WBC Cancelled RBC Cancelled Hgb Cancelled Hct Cancelled MCV Cancelled MCH Cancelled MCHC Cancelled RDW Cancelled Plt Count Cancelled MPV Cancelled Immature Gran % Cancelled Neutrophils % Cancelled Band Neutrophils % Cancelled Lymphocytes % Cancelled Atypical Lymphs % Cancelled Monocytes % Cancelled Eosinophils % Cancelled Basophils % Cancelled Metamyelocytes % Cancelled Myelocytes % Cancelled Promyelocytes % Cancelled Other Cells % Cancelled Nucleated RBC % Cancelled Absolute Neutrophils Cancelled Absolute Lymphocytes Cancelled Absolute Monocytes Cancelled Absolute Eosinophils Cancelled Absolute Basophils Cancelled RBC Morphology Cancelled Polychromasia Cancelled Hypochromasia Cancelled Poikilocytosis Cancelled Basophilic Stippling Cancelled Anisocytosis Cancelled Microcytosis Cancelled Macrocytosis Cancelled Spherocytes Cancelled Tear Drop Cells Cancelled Ovalocytes Cancelled Stomatocytes Cancelled [place] Bodies Cancelled [place] Cells/Echinocytes Cancelled Acanthocytes (Spur) Cancelled Schistocytes Cancelled Sodium Cancelled Potassium Cancelled Chloride Cancelled Carbon Dioxide Cancelled Anion Gap Cancelled BUN Cancelled Creatinine Cancelled Estimated GFR/1.73 m2 Cancelled Glucose Cancelled Calcium Cancelled Magnesium Cancelled Total Bilirubin Cancelled AST Cancelled ALT Cancelled Alkaline Phosphatase Cancelled Troponin I Cancelled Total Protein Cancelled Albumin Cancelled TSH Cancelled Urine Color Urine Clarity Urine pH Ur Specific [place]orte Urine Protein Urine Ketones Urine Blood Urine Nitrite Urine Bilirubin Urine Urobilinogen Ur Leukocyte Esterase Urine RBC Urine WBC Ur Epithelial Cells Urine Crystals Urine Bacteria Urine Casts Urine Mucus Ur Culture Indicated? Urine Glucose COVID-19 Source Nasal/Nares SARS-CoV-2 (PCR) Negative 06/19/21 06/19/21 06/19/21 12:50 13:47 13:47 WBC 9.03 RBC 5.83 H Hgb 14.0 Hct 50.5 H MCV 86.6 MCH 24.0 L MCHC 27.7 L RDW 20.9 H Plt Count 217 MPV 12.2 H Immature Gran % 0.6 Neutrophils % 78.2 Band Neutrophils % Lymphocytes % 13.7 Atypical Lymphs % Monocytes % 7.1 Eosinophils % 0.1 Basophils % 0.3 Metamyelocytes % Myelocytes % Promyelocytes % Other Cells % Nucleated RBC % 0 Absolute Neutrophils 7.06 H Absolute Lymphocytes 1.24 Absolute Monocytes 0.64 Absolute Eosinophils 0.01 Absolute Basophils 0.03 RBC Morphology See Below Polychromasia Hypochromasia Poikilocytosis Basophilic Stippling Anisocytosis 1+ Microcytosis Macrocytosis Spherocytes Tear Drop Cells Ovalocytes Stomatocytes [place] Bodies Jayson Cells/Echinocytes Acanthocytes (Spur) Schistocytes Sodium 175 H* Potassium 3.5 Chloride 134 H Carbon Dioxide 29.3 Anion Gap 11.7 H BUN 40 H Creatinine 1.5 H Estimated GFR/1.73 m2 34.04 Glucose 115 H Calcium 8.4 L Magnesium 2.7 H Total Bilirubin 0.4 AST 12 L ALT 7 L Alkaline Phosphatase 95 Troponin I 64 H* Total Protein 6.7 Albumin 2.5 L TSH 1.02 Urine Color Yellow Urine Clarity Clear Urine pH 5.5 Ur Specific [place]orte >= 1.030 H Urine Protein 30 H Urine Ketones Trace H Urine Blood Small H Urine Nitrite Positive H Urine Bilirubin Moderate H Urine Urobilinogen 1.0 H Ur Leukocyte Esterase Negative Urine RBC 20-50 H Urine WBC >50 H Ur Epithelial Cells Few Urine Crystals Negative Urine Bacteria Many Urine Casts Comment Urine Mucus Heavy Ur Culture Indicated? Yes Urine Glucose Negative COVID-19 Source SARS-CoV-2 (PCR) Last Vital Signs Temp 37.3 C 06/19/21 12:07 Pulse 83 06/19/21 14:01 Resp 11 L 06/19/21 14:01 BP 120/65 06/19/21 14:01 Pulse Ox 97 06/19/21 14:01
[2021-06-19 15:14] LABS: Lactate 1.8 mmol/L (0.6-1.4)
[2021-06-19 15:28] LABS: Anion Gap 14.4 mmol/L (3-11); BUN 39 mg/dL (7-18); CO2 28.6 mmol/L (21.0-32.0); CREATININE 1.2 mg/dL (0.55-1.02); Calcium 8.8 mg/dL (8.5-10.1); Chloride 134 mmol/L (98-107); Estimated GFR 44.04 (mL/min/1.73m2); Glucose 118 mg/dL (74-106); Potassium 3.1 mmol/L (3.5-5.1)
[2021-06-19 15:30] LABS: Sodium 177 mmol/L (136-145)
[2021-06-19] MEDS: cefTRIAXone 1 GM/50 ML BAG IVPB (15:30)
--- NOTE | 2021-06-19 15:30 | RT.EKG_ITS ---
APPROVED REPORT Exam: Resting ECG Reason for Exam: ams Patient Location: E HR:87 bpm ECG Measurements Heart Rate 87 AXIS NM 130 P 81 QRSd 75 QRS -75 QT 376 T 256 QTc 453 Conclusion Sinus rhythm...normal P axis, V-rate 60- 99 Left anterior fascicular block...axis(240,-40), init forces inf Nonspecific repol abnormality, diffuse leads...ST dep, T flat/neg, ant/lat/inf
[2021-06-19 15:46] LABS: Procalcitonin 0.1 ng/mL
[2021-06-19] MEDS: Normal Saline 1,000 ML 125 ML IV (16:38)
[2021-06-19] MEDS: Enoxaparin 40 MG/0.4 ML SYR SC (16:42)
[2021-06-19 16:47] LABS: Troponin I 63 ng/L (<or=60)
[2021-06-19] MEDS: DEXTROSE 5%-WATER 1,000 ML 200 ML IV ×2 (18:31→22:54)
[2021-06-19] MEDS: Carbidopa 25/Levodopa 100 TAB PO (20:00)
[2021-06-19] MEDS: Omeprazole 20 MG CAPCR PO (20:06)
[2021-06-19] MEDS: risperiDONE 1 MG TAB PO (20:11)
[2021-06-19] MEDS: ACETAMINOPHEN 1,000 MG/100 ML BTL 400 MG IVPB (21:36)
[2021-06-19 22:32] LABS: BUN 33 mg/dL (7-18); Calcium 7.8 mg/dL (8.5-10.1); Chloride 130 mmol/L (98-107); Estimated GFR 54.35 (mL/min/1.73m2)
[2021-06-19 22:41] LABS: Glucose 244 mg/dL (74-106)
[2021-06-19 22:44] LABS: Potassium 2.8 mmol/L (3.5-5.1); Sodium 169 mmol/L (136-145)
[2021-06-20] VITALS (13 sets, daily range): BP systolic 82–103; BP diastolic 47–64; PULSE 65–88; RESP 16–24; TEMP 36.5–38; O2SAT 95–97
[2021-06-20] MEDS: POTASSIUM CHLORIDE 10 MEQ/100 ML BAG 100 MEQ IVPB ×4 (00:25→07:27)
[2021-06-20] MEDS: DEXTROSE 5%-WATER 1,000 ML 200 ML IV ×2 (03:32→08:36)
[2021-06-20 05:46] LABS: Abs Immature Grans 0.02 10^3/uL (0.0-0.06); Absolute Basophil Count 0.04 10^3/uL (0.0-0.2); Absolute Eosinophil Count 0.19 10^3/uL (0.0-0.7); Absolute Lymphocyte Count 1.74 10^3/uL (1.2-3.4); Absolute Neutrophil Count 4.42 10^3/uL (1.2-6.7); Basophils % 0.6; Eosinophils % 2.7; HGB 10.9 g/dL (11.2-15.7); Immature Grans % 0.3; Lymphocytes % 25.2; MCH 23.9 pg (27.0-33.0); MCHC 27.9 % (32.0-36.0); MCV 85.3 fL (80-95); MPV 11.7 fL (8.0-11.0); Monocytes % 7.2; Nucleated RBC 0 %; Platelet Count 157 10^3/uL (130-400); RBC 4.57 10^6/uL (3.93-5.22); RDW 19.7 % (11.7-14.6); RDW-SD 60.8 fL; WBC 6.91 10^3/uL (4.4-10.8)
[2021-06-20 05:58] LABS: Calcium 7.4 mg/dL (8.5-10.1); Chloride 118 mmol/L (98-107); Estimated GFR 54.35 (mL/min/1.73m2); Glucose 276 mg/dL (74-106)
[2021-06-20 06:00] LABS: Potassium 2.4 mmol/L (3.5-5.1)
[2021-06-20 06:01] LABS: BUN 24 mg/dL (7-18); Sodium 155 mmol/L (136-145)
[2021-06-20 06:11] LABS: Hypochromasia 1+
--- NOTE | 2021-06-20 09:59 | INITIAL_ITS ---
- If Service Date Differs Date of service: 06/20/21 Time of Service: 09:59 Care Management Initial Assess REASON FOR HOSPITALIZATION:: Uti, hypernatremia PAST MEDICAL HISTORY/PAST SURGICAL HISTORY:: ll Active Problems (Updated 06/19/21 @ 16:05 by Jennifer Peck NP). Discharge planning issues (Acute). DVT prophylaxis (Acute). Hypernatremia (Acute). Acute UTI (Acute). Elevated troponin (Acute). Bipolar 2 disorder, major depressive episode (Chronic). Dr Coates, [facility], [place] office. Health care proxy on file (Acute). Flat affect (Acute). Shuffling gait (Acute). Tremor (Acute). History of rhabdomyolysis (Acute). Catatonia associated with another mental disorder (Chronic). recurrent episodes of catatonia. hospitalized for same in past. Psychiatric illness (Chronic). for many years. Parkinsonism due to drug s (Chronic). psychiatric medications. Frequent falls (Acute). Palliative care patient (Acute). intermediate resident (Acute). Malignant neoplasm of right breast (Chronic). in remission. Anxiety (Acute). Medical History . Acute kidney failure. Dysphagia, oropharyngeal phase. GERD (gastroesophageal reflux disease). Glaucoma. Major depressive disorder. Osteoporosis. 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 Vitamin B deficiency, unspecified PREVIOUS FUNCTIONAL STATUS/SOCIAL/FAMILY SUPPORTS:: Alethea has resided at [facility] since mid-March. She has a sister, Linda Horvath, who lives in [place] and is involved and supportive. She also has a brother in [place] and another sister in [place]. Alethea fell inSeptember and was not found for 2 days.She developed rhabdo and weakness necessitating rehab. Prior to that she was independent with ADLs, finances and driving. CURRENT FUNCTIONAL STATUS:: Alethea was lying in bed when CM met with her. She appeared to be sleeping but opened her eyes when CM spoke to her. She said hello but nothing else. met with her sister Linda this afternoon who was able to provide information about Alethea's family and prior health. According to Linda, there has been a drastic decline since Alethea has been at [facility]. She was fully independent and ambulatory prior to the fall that resulted in the need for rehab. Since mid-May, Linda stated that Alethea has become less and less verbal. She has not been eating or drinking and according to Alethea's roomate at [facility], she has not been getting out of bed. Linda shared that PT has stopped doing any exercisres or treatments since her insurance stopped covering the cost. Linda is hoping to have Alethea moved to another facility, although CM informed her that she will likely need to return there and seek alternative placement from [facility]. Linda also informed CM that the family applied for jail Medicaid in April. She was approved clinically but the finasncial determination has not been made yet. ADVANCE DIRECTIVES:: None on file. Alethea is a full code. Has patient been provided with info about the portal/API?: Yes Did the patient sign up for the portal?: No CODE STATUS:: Full Code INSURANCE COVERAGE / FINANCIAL ISSUES:: Medicare. BS CURRENT HOME/COMMUNITY SERVICES/EQUIPMENT:: Alethea has been living at [facility] since March. PRIMARY CARE PHYSICIAN:: Matti Li POTENTIAL DISCHARGE NEEDS:: coordinated safe return to [facility] PATIENT/FAMILY EDUCATION NEEDS:: Review of discharge instructions with patient, family and staff at [facility] TRANSPORTATION:: via facility w/c van PLAN:: Alethea will yoana return to [facility] when medically cleared. She will follow up with the facility providers and plan of care and transport via facility w/c van. CM will continue to support Alethea and her family and assess for discharge planning concerns.
--- NOTE | 2021-06-20 10:23 | PT.INNT ---
Date of service: 06/20/21 Time of Service: 10:15 PT Notes Visit Reasons: UTI, Dehydration, ? PNA
--- NOTE | 2021-06-20 10:29 | PT.INIE ---
PT Notes Visit Reasons: UTI, Dehydration, ? PNA Physical Therapy Inpatient Initial Evaluation Date: 06/20/21 Referring Doctor: Jennifer Peck PT Orders: PT CONSULT: Eval & treat Precautions: Fall. Standard. Patient Profile/Admitting Diagnosis: Alethea is a 75 yo female that presented to the ER on 06/19/21 from the retirement she lives in with concerns for dehydration. Determined to also have UTI. She resides at [facility]. Sister is concerned if being properly cared for. PMHX: Updated 06/19/21 @ 16:05 by Jennifer Peck, FUNERAL PLANNER) Discharge planning issues (Acute) DVT prophylaxis (Acute) Hypernatremia (Acute) Acute UTI (Acute) Elevated troponin (Acute) Bipolar 2 disorder, major depressive episode (Chronic) Dr Coates, [facility] office Health care proxy on file (Acute) Flat affect (Acute) Shuffling gait (Acute) Tremor (Acute) History of rhabdomyolysis (Acute) 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 of catatonia hospitalized for same in past Psychiatric illness (Chronic) for many years Parkinsonism due to drugs (Chronic) psychiatric medications Frequent falls (Acute) Palliative care patient (Acute) [facility] resident (Acute) Malignant neoplasm of right breast (Chronic) in remission Anxiety (Acute) Acute kidney failure Dysphagia, oropharyngeal phase GERD (gastroesophageal reflux disease) Glaucoma Major depressive disorder Osteoporosis Unspecified disorder of adult personality and behavior Venous thrombosis and embolism Vitamin B deficiency, unspecified Social History/Home Situation: Lives at [facility]. Sister is active in her care. Equipment Owned/DME: Unknown Subjective: Cleared by nursing to see patient. Patient resting in bed at time of consult, connected to telemetry, with nursing providing hygiene. Objective: General Observation: Awake,but not interactive Mental Status: Not alert or oriented Pain: None indicated ROM: Upper and lower extremity ROM within functional limits passively. Patient demonstrates no active participation. Strength: Unable to assess as patient not active with assessment or able to follow cues. Sensation: Unknown Bed Mobility/Transfers: Rolling: Dependent Supine to sit: Dependent Sit to supine: Dependent Sit to stand: Not assessed Stand to sit: Not assessed Gait: Not assessed. Balance: Not assessed Special Tests: Mobility Limitations Standardized Measure [facility]-P[facility] 6 clicks Basic Mobility Inpatient Short Form: Raw Score: 6 CMS Score: 100% Informed Consent/Education: Patient instructed in purpose of PT consult and plan of care. Assessment: Patient presents with clinical signs and symptoms consistent with current/admitting diagnoses that have resulted to mobility limitations, gait instability, generalized weakness, and impairment of motor control as demonstrated by the following impairment level findings: 1. Decreased strength to all major muscle groups 2. Impaired sitting/standing balance 3. Impaired activity tolerance Impairments are contributing to the following functional limitations: 1. Dependent bed mobility skills 2. Dependent with transfers 3. Inability to safely ambulate 4. Dependent with ADLs 5. Increased fall risk Patient is assessed as a High complexity based on the following: History: 75 year old female with impairment level findings, functional limitations, and past medical history as indicated above Examination: Demonstrable impairment in strength, balance, and mobility level with underlying impairments and functional limitations as documented above Presentation: Evolving Decision Making: High complexity Goals: Goals x1 week 1. Supine-Sit: Min A 2. Sit-Supine: Min A 3. Sit-Stand: Mod A 4. Stand-Sit: Mod A Plan of Care/Treatment Plan: 1-2x/day, 7 days/week x 1 week. Plan of care has been reviewed with the ROUTE SALES PERSON providing the service under Physical Therapy direction. Initiate Physical Therapy intervention for strengthening, bed mobility, transfers, gait, balance training, and use of assistive device. Discharge Plan DISCHARGE RECOMMENDATIONS: [facility] care facility TREATMENT CODE/TIME: 10:15-10:25 (10 minutes), [id number] Thank you for the opportunity to participate in the care of this patient. Vicky Mckenna, PT, DPT, OCS [facility] [place], [place]
[2021-06-20 12:38] LABS: Anion Gap 7.8 mmol/L (3-11); BUN 18 mg/dL (7-18); CO2 28.2 mmol/L (21.0-32.0); CREATININE 0.8 mg/dL (0.55-1.02); Calcium 7.2 mg/dL (8.5-10.1); Chloride 114 mmol/L (98-107); Glucose 182 mg/dL (74-106); Sodium 150 mmol/L (136-145)
[2021-06-20] MEDS: ACETAMINOPHEN 1,000 MG/100 ML BTL 400 MG IVPB (12:43)
[2021-06-20 12:44] LABS: Potassium 2.6 mmol/L (3.5-5.1)
--- NOTE | 2021-06-20 12:57 | PGE_ITS ---
Date of Service Date of service: 06/20/21 Time of Service: 12:59 Assessment and Plan Assessment and plan (1) Hypernatremia: Status: Acute Assessment and plan: D/t severe dehydration Serum sodium came down rapidly overnight to 155 however the structural architect had put her on D5W. Her potassium also dropped to 2.4. She was given couple of boluses of potassium IV 10 mEq each repeat labs at noon time serum sodium is down to 150 potassium is at 2.6. As the patient is unable to take any oral medications safely without choking I have ordered repeat potassium bolus of 20 mEq each x2 doses we will repeat her BMP this evening. She is currently on D5 LR with 20 mEq potassium per liter. Continue serial monitoring of her BMP. (2) Acute UTI: Status: Acute Assessment and plan: Found to have positive nitrates and leuk est Initiated on ceftriaxone Urine cx pending BC pending Question of PNA Clinically low suspicion will treat with ceftriaxone at this time only Urine culture is growing gram-negative rods greater than 100,000 colonies. Continue current treatment with Rocephin.. (3) Elevated troponin: Status: Acute Assessment and plan: Trop leaking likely d/t dehydration will follow serial trops and monitor. 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 We will give a trial of IV Ativan 2 mg IV now if no response will repeat the dose in 15 minutes. If still no response then consider alternative diagnoses. May need ECT therapy if she remains catatonic. 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 will consult PT and Palliative (7) Flat affect: Status: Acute Assessment and plan: as above (8) DVT prophylaxis: Status: Acute Assessment and plan: Enoxaparin (9) Discharge planning issues: Status: Acute Assessment and plan: Back to assisted living when medically ready Subjective Subjective Interval history since last seen: Patient has become more withdrawn today. Nursing cannot get her to take any oral nutrition. She is arousable and opens her eyes and moans when her name is called but does not seem to follow commands. Exam Narrative Exam Narrative: Patient was sonorous respirations but when her name is called or stimulated by tactile such as rubbing her shoulders or sternal rub she opens her eyes and moans and looks at me but then goes back into her sonorous breathing and does not engage or answer questions. Lungs are clear to auscultation Heart is regular Abdomen soft nondistended nontender tender with bowel sounds Extremities no edema. When I raise her hand above her head and face she seems to avoid directly hitting her face but her hand will fall to the pillow alongside her face or down over her chest. She seems to have preserved tone in both arms and legs. Objective Last Vital Signs Temp 36.7 C 06/20/21 11:50 Pulse 73 06/20/21 11:50 Resp 20 06/20/21 11:50 BP 96/57 L 06/20/21 11:50 Pulse Ox 97 06/20/21 11:50 Laboratory Results - last 24 hr 06/19/21 06/19/21 06/19/21 12:32 12:42 12:42 WBC Cancelled RBC Cancelled Hgb Cancelled Hct Cancelled MCV Cancelled MCH Cancelled MCHC Cancelled RDW Cancelled Plt Count Cancelled MPV Cancelled Immature Gran % Cancelled Neutrophils % Cancelled Band Neutrophils % Cancelled Lymphocytes % Cancelled Atypical Lymphs % Cancelled Monocytes % Cancelled Eosinophils % Cancelled Basophils % Cancelled Metamyelocytes % Cancelled Myelocytes % Cancelled Promyelocytes % Cancelled Other Cells % Cancelled Nucleated RBC % Cancelled Absolute Neutrophils Cancelled Absolute Lymphocytes Cancelled Absolute Monocytes Cancelled Absolute Eosinophils Cancelled Absolute Basophils Cancelled RBC Morphology Cancelled Polychromasia Cancelled Hypochromasia Cancelled Poikilocytosis Cancelled Basophilic Stippling Cancelled Anisocytosis Cancelled Microcytosis Cancelled Macrocytosis Cancelled Spherocytes Cancelled Tear Drop Cells Cancelled Ovalocytes Cancelled Stomatocytes Cancelled [place] Bodies Cancelled Jayson Cells/Echinocytes Cancelled Acanthocytes (Spur) Cancelled Schistocytes Cancelled VBG Lactate Sodium Cancelled Potassium Cancelled Chloride Cancelled Carbon Dioxide Cancelled Anion Gap Cancelled BUN Cancelled Creatinine Cancelled Estimated GFR/1.73 m2 Cancelled Glucose Cancelled Calcium Cancelled Magnesium Cancelled Total Bilirubin Cancelled AST Cancelled ALT Cancelled Alkaline Phosphatase Cancelled Troponin I Cancelled Total Protein Cancelled Albumin Cancelled Procalcitonin TSH Cancelled Urine Color Urine Clarity Urine pH Ur Specific [place] Urine Protein Urine Ketones Urine Blood Urine Nitrite Urine Bilirubin Urine Urobilinogen Ur Leukocyte Esterase Urine RBC Urine WBC Ur Epithelial Cells Urine Crystals Urine Bacteria Urine Casts Urine Mucus Ur Culture Indicated? Urine Glucose SARS-CoV-2 (PCR) Negative 06/19/21 06/19/21 06/19/21 12:50 13:47 13:47 WBC 9.03 RBC 5.83 H Hgb 14.0 Hct 50.5 H MCV 86.6 MCH 24.0 L MCHC 27.7 L RDW 20.9 H Plt Count 217 MPV 12.2 H Immature Gran % 0.6 Neutrophils % 78.2 Band Neutrophils % Lymphocytes % 13.7 Atypical Lymphs % Monocytes % 7.1 Eosinophils % 0.1 Basophils % 0.3 Metamyelocytes % Myelocytes % Promyelocytes % Other Cells % Nucleated RBC % 0 Absolute Neutrophils 7.06 H Absolute Lymphocytes 1.24 Absolute Monocytes 0.64 Absolute Eosinophils 0.01 Absolute Basophils 0.03 RBC Morphology See Below Polychromasia Hypochromasia Poikilocytosis Basophilic Stippling Anisocytosis 1+ Microcytosis Macrocytosis Spherocytes Tear Drop Cells Ovalocytes Stomatocytes [place] Bodies Jayson Cells/Echinocytes Acanthocytes (Spur) Schistocytes VBG Lactate Sodium 175 H* Potassium 3.5 Chloride 134 H Carbon Dioxide 29.3 Anion Gap 11.7 H BUN 40 H Creatinine 1.5 H Estimated GFR/1.73 m2 34.04 Glucose 115 H Calcium 8.4 L Magnesium 2.7 H Total Bilirubin 0.4 AST 12 L ALT 7 L Alkaline Phosphatase 95 Troponin I 64 H* Total Protein 6.7 Albumin 2.5 L Procalcitonin TSH 1.02 Urine Color Yellow Urine Clarity Clear Urine pH 5.5 Ur Specific [place] >= 1.030 H Urine Protein 30 H Urine Ketones Trace H Urine Blood Small H Urine Nitrite Positive H Urine Bilirubin Moderate H Urine Urobilinogen 1.0 H Ur Leukocyte Esterase Negative Urine RBC 20-50 H Urine WBC >50 H Ur Epithelial Cells Few Urine Crystals Negative Urine Bacteria Many Urine Casts Comment Urine Mucus Heavy Ur Culture Indicated? Yes Urine Glucose Negative SARS-CoV-2 (PCR) 06/19/21 06/19/21 06/19/21 15:05 15:05 15:05 WBC RBC Hgb Hct MCV MCH MCHC RDW Plt Count MPV Immature Gran % Neutrophils % Band Neutrophils % Lymphocytes % Atypical Lymphs % Monocytes % Eosinophils % Basophils % Metamyelocytes % Myelocytes % Promyelocytes % Other Cells % Nucleated RBC % Absolute Neutrophils Absolute Lymphocytes Absolute Monocytes Absolute Eosinophils Absolute Basophils RBC Morphology Polychromasia Hypochromasia Poikilocytosis Basophilic Stippling Anisocytosis Microcytosis Macrocytosis Spherocytes Tear Drop Cells Ovalocytes Stomatocytes [place] Bodies J[place] Cells/Echinocytes Acanthocytes (Spur) Schistocytes VBG Lactate 1.8 H Sodium 177 H* Potassium 3.1 L Chloride 134 H Carbon Dioxide 28.6 Anion Gap 14.4 H BUN 39 H Creatinine 1.2 H Estimated GFR/1.73 m2 44.04 Glucose 118 H Calcium 8.8 Magnesium Total Bilirubin AST ALT Alkaline Phosphatase Troponin I 63 H* Total Protein Albumin Procalcitonin 0.1 TSH Urine Color Urine Clarity Urine pH Ur Specific [place] Urine Protein Urine Ketones Urine Blood Urine Nitrite Urine Bilirubin Urine Urobilinogen Ur Leukocyte Esterase Urine RBC Urine WBC Ur Epithelial Cells Urine Crystals Urine Bacteria Urine Casts Urine Mucus Ur Culture Indicated? Urine Glucose SARS-CoV-2 (PCR) 06/19/21 06/19/21 06/20/21 21:30 22:28 05:30 WBC RBC Hgb Hct MCV MCH MCHC RDW Plt Count MPV Immature Gran % Neutrophils % Band Neutrophils % Lymphocytes % Atypical Lymphs % Monocytes % Eosinophils % Basophils % Metamyelocytes % Myelocytes % Promyelocytes % Other Cells % Nucleated RBC % Absolute Neutrophils Absolute Lymphocytes Absolute Monocytes Absolute Eosinophils Absolute Basophils RBC Morphology Polychromasia Hypochromasia Poikilocytosis Basophilic Stippling Anisocytosis Microcytosis Macrocytosis Spherocytes Tear Drop Cells Ovalocytes Stomatocytes [place] Bodies [place] Cells/Echinocytes Acanthocytes (Spur) Schistocytes VBG Lactate Sodium Cancelled 169 H* 155 H D Potassium Cancelled 2.8 L* 2.4 L* Chloride Cancelled 130 H 118 H Carbon Dioxide Cancelled 30.0 29.0 Anion Gap Cancelled 9.0 8.0 BUN Cancelled 33 H 24 H D Creatinine Cancelled 1.0 1.0 Estimated GFR/1.73 m2 Cancelled 54.35 54.35 Glucose Cancelled 244 H D 276 H Calcium Cancelled 7.8 L 7.4 L Magnesium 2.0 Total Bilirubin AST ALT Alkaline Phosphatase Troponin I Total Protein Albumin Procalcitonin TSH Urine Color Urine Clarity Urine pH Ur Specific [place] Urine Protein Urine Ketones Urine Blood Urine Nitrite Urine Bilirubin Urine Urobilinogen Ur Leukocyte Esterase Urine RBC Urine WBC Ur Epithelial Cells Urine Crystals Urine Bacteria Urine Casts Urine Mucus Ur Culture Indicated? Urine Glucose SARS-CoV-2 (PCR) 06/20/21 06/20/21 06/20/21 05:30 12:15 14:00 WBC 6.91 RBC 4.57 Hgb 10.9 L D Hct 39.0 D MCV 85.3 MCH 23.9 L MCHC 27.9 L RDW 19.7 H Plt Count 157 MPV 11.7 H Immature Gran % 0.3 Neutrophils % 64.0 Band Neutrophils % Lymphocytes % 25.2 Atypical Lymphs % Monocytes % 7.2 Eosinophils % 2.7 Basophils % 0.6 Metamyelocytes % Myelocytes % Promyelocytes % Other Cells % Nucleated RBC % 0 Absolute Neutrophils 4.42 Absolute Lymphocytes 1.74 Absolute Monocytes 0.50 Absolute Eosinophils 0.19 Absolute Basophils 0.04 RBC Morphology See Below Polychromasia Hypochromasia 1+ Poikilocytosis Basophilic Stippling Anisocytosis Microcytosis Macrocytosis Spherocytes Tear Drop Cells Ovalocytes Stomatocytes [place] Bodies [place] Cells/Echinocytes Acanthocytes (Spur) Schistocytes VBG Lactate Sodium 150 H Potassium 2.6 L* Cancelled Chloride 114 H Carbon Dioxide 28.2 Anion Gap 7.8 BUN 18 D Creatinine 0.8 Estimated GFR/1.73 m2 >= 60.00 Glucose 182 H D Calcium 7.2 L Magnesium Total Bilirubin AST ALT Alkaline Phosphatase Troponin I Total Protein Albumin Procalcitonin TSH Urine Color Urine Clarity Urine pH Ur Specific [place] Urine Protein Urine Ketones Urine Blood Urine Nitrite Urine Bilirubin Urine Urobilinogen Ur Leukocyte Esterase Urine RBC Urine WBC Ur Epithelial Cells Urine Crystals Urine Bacteria Urine Casts Urine Mucus Ur Culture Indicated? Urine Glucose SARS-CoV-2 (PCR) Reviewed Pertinent PMH: Yes
[2021-06-20] MEDS: LORazepam 2 MG/ML VIAL IVP (14:11)
[2021-06-20] MEDS: Normal Saline Flush 10 ML SYR IVP ×2 (14:13→18:35)
[2021-06-20] MEDS: POTASSIUM CHLORIDE 20 MEQ/100 ML BAG 50 MEQ IVPB ×2 (14:53→16:59)
[2021-06-20] MEDS: Enoxaparin 40 MG/0.4 ML SYR SC (16:23)
[2021-06-20] MEDS: cefTRIAXone 1 GM/50 ML BAG IVPB (17:24)
[2021-06-20 18:04] LABS: Anion Gap 4.4 mmol/L (3-11); BUN 13 mg/dL (7-18); CO2 29.6 mmol/L (21.0-32.0); CREATININE 0.7 mg/dL (0.55-1.02); Calcium 7.1 mg/dL (8.5-10.1); Chloride 115 mmol/L (98-107); Glucose 152 mg/dL (74-106); Potassium 3.2 mmol/L (3.5-5.1); Sodium 149 mmol/L (136-145)
[2021-06-20] MEDS: Normal Saline 500 ML 250 ML IV (19:00)
[2021-06-20] MEDS: PANTOPRAZOLE 40 MG in Normal Saline 100 ML 10 MG IV (21:04)
[2021-06-21] VITALS (11 sets, daily range): BP systolic 86–109; BP diastolic 52–63; PULSE 64–79; RESP 18–30; TEMP 36.7–37.3; O2SAT 94–99
[2021-06-21 07:03] LABS: Abs Immature Grans 0.06 10^3/uL (0.0-0.06); Absolute Basophil Count 0.02 10^3/uL (0.0-0.2); Absolute Eosinophil Count 0.17 10^3/uL (0.0-0.7); Absolute Lymphocyte Count 1.54 10^3/uL (1.2-3.4); Absolute Monocyte Count 0.38 10^3/uL (0.1-0.8); Absolute Neutrophil Count 5.15 10^3/uL (1.2-6.7); Basophils % 0.3; Eosinophils % 2.3; HCT 37.3 % (36.0-46.0); Immature Grans % 0.8; MCH 23.6 pg (27.0-33.0); MCHC 29.5 % (32.0-36.0); Monocytes % 5.2; Neutrophils % 70.4; Nucleated RBC 0 %; Platelet Count 167 10^3/uL (130-400); RBC 4.66 10^6/uL (3.93-5.22); RDW 19.3 % (11.7-14.6); RDW-SD 55.2 fL; WBC 7.32 10^3/uL (4.4-10.8)
[2021-06-21 07:10] LABS: Anion Gap 6.4 mmol/L (3-11); BUN 7 mg/dL (7-18); CO2 26.6 mmol/L (21.0-32.0); CREATININE 0.6 mg/dL (0.55-1.02); Calcium 7.1 mg/dL (8.5-10.1); Chloride 117 mmol/L (98-107); Glucose 170 mg/dL (74-106); Magnesium 1.6 mg/dL (1.8-2.4); Sodium 150 mmol/L (136-145)
[2021-06-21 07:21] LABS: Potassium 2.9 mmol/L (3.5-5.1)
[2021-06-21] MEDS: MAGNESIUM SULFATE 2 GM/50 ML BAG IVPB (09:22)
[2021-06-21] MEDS: DEXTROSE 5%-LACTATED RINGERS 1,000 ML 125 ML IV (10:14)
[2021-06-21] MEDS: POTASSIUM CHLORIDE 20 MEQ/100 ML BAG 50 MEQ IVPB ×2 (10:15→12:38)
--- NOTE | 2021-06-21 11:13 | STREC_ITS ---
Date of service: 06/21/21 Time of Service: 11:13 Speech Therapy Recommendations Report ST Recommendations: NURSERY SUPERVISOR NON-TREATMENT NOTE NURSERY SUPERVISOR contacting RN this am, RN noting patient is minimally responsive, including to oral stimulation thus far today. RN also to administer meds shortly, with anticipation of increased somnolence. NURSERY SUPERVISOR to re-contact patient later this afternoon to see if patient is more appropriate at that time for evaluation. Adele Blanco, MS [facility]-NURSERY SUPERVISOR [phone] Coding
--- NOTE | 2021-06-21 11:13 | PDOC.STREC ---
Date of service: 06/21/21 Time of Service: 11:13 Speech Therapy Recommendations Report ST Recommendations: MANAGEMENT SCIENTIST NON-TREATMENT NOTE MANAGEMENT SCIENTIST contacting RN this am, RN noting patient is minimally responsive, including to oral stimulation thus far today. RN also to administer meds shortly, with anticipation of increased somnolence. MANAGEMENT SCIENTIST to re-contact patient later this afternoon to see if patient is more appropriate at that time for evaluation. Adele Blanco, MS [facility]-MANAGEMENT SCIENTIST [phone] Coding
[2021-06-21 11:20] LABS: Hepatitis A Antibody IgM Negative (Negative); Hepatitis B Core Antibody Negative (Negative); Hepatitis B surface Ag Negative (Negative); Hepatitis C Ab w Rflx HCV PCR Negative (Negative)
[2021-06-21] MEDS: Normal Saline Flush 10 ML SYR IVP ×3 (11:32→20:26)
[2021-06-21] MEDS: LORazepam 2 MG/ML VIAL 1 MG IVP ×2 (11:32→22:06)
--- NOTE | 2021-06-21 12:38 | PGE_ITS ---
Date of Service Date of service: 06/21/21 Time of Service: :47 Assessment and Plan Assessment and plan (1) Hypernatremia: Start date: 06/21/21 Start time: 11:47 Status: Acute Assessment and plan: D/t severe dehydration Serum sodium came down rapidly night of admission medical records administrator had put her on D5W. She was changed to D5LR with 20K her potassium was low this morning at 2.9 requiring repletion, sodium 150, will repeat at 1400. Sodium appears to be baseline at 149-150 when graphed out over a year. She still appears dry, MM dry though she is mouth breathing, she would benefit from good oral care. She would also benefit from Speech therapy consult d/t risk for choking. Will give IVF at this time and IV meds. Until speech consult. (2) Acute UTI: Start date: 06/21/21 Start time: 11:47 Status: Acute Assessment and plan: Found to have positive nitrates and leuk est One bottle of BC revealing gram positive cocci possible contaminant Question of PNA Clinically low suspicion will treat with ceftriaxone at this time only Urine culture is growing gram-negative rods greater than 100,000 colonies. Continue current treatment with Rocephin.. (3) Elevated troponin: Start date: 06/21/21 Start time: 11:47 Status: Acute Assessment and plan: Trop leaking likely d/t dehydration will follow serial trops and monitor. EKG NSR with rate of 87 (4) Catatonia associated with another mental disorder: Start date: 06/21/21 Start time: 11:47 Status: Chronic Assessment and plan: Flat affect, will follow some commands does answer questions in a quiet voice appropriately. Given ativan 1 mg IVP q 6 H x 24 H. If still no response then consider alternative diagnoses. May need ECT therapy if she remains catatonic. 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 will consult PT and Palliative PT is on hold at this time due to patient state. Will work with her when she more alert (7) Flat affect: Start date: 06/21/21 Start time: 11:47 Status: Acute Assessment and plan: as above (8) DVT prophylaxis: Start date: 06/21/21 Start time: 11:47 Status: Acute Assessment and plan: Enoxaparin (9) Discharge planning issues: Start date: 06/21/21 Start time: 11:47 Status: Acute Assessment and plan: Back to assisted living when medically ready discussed with Dr. Cross Subjective Subjective Patient reports: other Interval history since last seen: Patient quietly responding to answers appropriately. She will follows some commands. Will not cooperate with turning for listening to back to hear lung sounds or for skin check. However she does follow commands when telling her to take deep breath. Will place on ativan IVP q6h rickie x 24 to see if this is effective. Psych consult for catatonia. Exam Narrative Exam Narrative: Patient Awake and alert. Quiet but follows some commands. Answers questions appropriately. Lungs are clear to auscultation in the front, would not cooperate to listen to the back Heart is regular Abdomen soft nondistended nontender tender with bowel sounds Extremities no edema. Objective Last Vital Signs Temp 36.7 C 06/21/21 11:43 Pulse 75 06/21/21 11:43 Resp 18 06/21/21 11:43 BP 101/61 06/21/21 11:43 Pulse Ox 94 06/21/21 11:43 Laboratory Results - last 24 hr 06/20/21 06/20/21 06/20/21 05:30 12:15 17:45 WBC RBC Hgb Hct MCV MCH MCHC RDW Plt Count MPV Immature Gran % Neutrophils % Lymphocytes % Monocytes % Eosinophils % Basophils % Nucleated RBC % Absolute Neutrophils Absolute Lymphocytes Absolute Monocytes Absolute Eosinophils Absolute Basophils Sodium 150 H 149 H Potassium 2.6 L* 3.2 L Chloride 114 H 115 H Carbon Dioxide 28.2 29.6 Anion Gap 7.8 4.4 BUN 18 D 13 Creatinine 0.8 0.7 Estimated GFR/1.73 m2 >= 60.00 >= 60.00 Glucose 182 H D 152 H Calcium 7.2 L 7.1 L Magnesium Hepatitis A IgM Ab Negative Hep Bs Antigen Negative Hep B Core Total Ab Negative Hepatitis C Antibody Negative 06/21/21 06/21/21 06:45 06:45 WBC 7.32 RBC 4.66 Hgb 11.0 L Hct 37.3 MCV 80.0 MCH 23.6 L MCHC 29.5 L RDW 19.3 H Plt Count 167 MPV Immature Gran % 0.8 Neutrophils % 70.4 Lymphocytes % 21.0 Monocytes % 5.2 Eosinophils % 2.3 Basophils % 0.3 Nucleated RBC % 0 Absolute Neutrophils 5.15 Absolute Lymphocytes 1.54 Absolute Monocytes 0.38 Absolute Eosinophils 0.17 Absolute Basophils 0.02 Sodium 150 H Potassium 2.9 L Chloride 117 H Carbon Dioxide 26.6 Anion Gap 6.4 BUN 7 Creatinine 0.6 Estimated GFR/1.73 m2 >= 60.00 Glucose 170 H Calcium 7.1 L Magnesium 1.6 L Hepatitis A IgM Ab Hep Bs Antigen Hep B Core Total Ab Hepatitis C Antibody
--- NOTE | 2021-06-21 13:40 | NUR.NOTE ---
Nursing Note: Per Adele from Speech Therapy, pt is not appropriate at 1230 to be assessed. Adele will return to [place] following some studies to reassess pt. If pt unable to be seen today and request for evaluation is form 06/22/21, please call the ENT office in the morning to arrange for a ST to come down from [facility] to do evaluation. Information was shared with Sonia Ortega RN.
[2021-06-21 14:55] LABS: Anion Gap 6.5 mmol/L (3-11); BUN 5 mg/dL (7-18); CO2 27.5 mmol/L (21.0-32.0); CREATININE 0.6 mg/dL (0.55-1.02); Calcium 7.5 mg/dL (8.5-10.1); Chloride 115 mmol/L (98-107); Glucose 144 mg/dL (74-106); Potassium 3.5 mmol/L (3.5-5.1); Sodium 149 mmol/L (136-145)
--- NOTE | 2021-06-21 16:13 | SP_ITS ---
Date of service: 06/21/21 Time of Service: 15:30 Subjective Patient referred for clinical swallow evaluation from Dr Cross given AMS and difficulty with swallowing/ high risk of choking/aspiration. Patient received somnolent, rousable to touch and verbal stimulus. Unable to communicate wants/needs effectively or to demonstrate comprehension of recommendations for safe p.o. intake upon discharge once deemed medically stable. Patient?s sister, Linda was present at the time of evaluation and provided some background. She reported that when Ali was across the street at [facility], she was seen by BOOK JACKET COVER MACHINE OPERATOR services and put on a puree diet, but did not know any further details. Linda does report that she doesn?t think the patient was eating very much prior to admission here, and that her functional status with ambulation, verbal communication, has been declining since mid- March. Precautions: Fall, Standard HPI: Pt is a 75 year old F with PMH of multiple psychiatric disorders including Bipolar, catatonia, flat affect, parkinsonism 2/2 drug use, who presented to [facility] ED with concerns for dehydration. Found upon admit to have hypernatremia, acute UTI, and elevated troponin. Since admit, mental status has worsened, unable to take any oral nutrition and more withdrawn. Not following most commands. 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 Sister Bryan is very involved and advocates for her care. Objective Objective Predisposing dysphagia risk factors: baseline dysphagia reported. Clinical signs of possible chronic dysphagia: Left Lower Lobe infiltrate Precipitating dysphagia risk factors / triggering event: Unable to safely take PO medications per RN Current diet: Regular Pulmonary status stable at time of this exam. Cranial nerve exam / Oral Motor: Unable to complete, patient unable to follow most instructions. Attempting oral care, unable to complete satisfactory oral care due to oral fixation/reflexive biting patterns and lack of awareness. Patient is mouth breathing, difficult to view oral cavity but noting very dried secretions coating tongue. Language: Minimally verbal, ?thank you? Mental Status: Altered, not oriented, unable to demonstrate understanding or follow commands. Speech: difficult to test in setting of minimal verbal output. Laryngeal function exam: Secretions: dry Vocal quality: unable to assess Cough: unable to elicit volitional cough 2/2 mental status Unable to elicit volitional swallow. Food items tested: [x ] Ice: single chip x2 Oral phase: [ ] WFL [ ] Leakage from mouth [ x] Difficulty with bolus manipulation (absent, patient holds ice chip at tip of tongue) [ x] Difficulty with a-p transport (absent) [ ] Difficulty chewing N/A [ ] Pocketing [ ] Residue N/A Pharyngeal phase: [ ] WFL [ x] Delayed swallow initiation (ABSENT) [x ] Reduced hyolaryngeal elevation/excursion (ABSENT) [ ] Cough after swallow [ ] Voice change after swallow [ ] Throat clearing [ ] Endorsed stasis Provided education to patient?s family and RN re: anatomy/physiology of swallowing mechanism, overt s/sx to monitor for re: potential aspiration of food liquids, recommendations for improved oral care, relationship between respiratory function changes and deglutition. Assessment Patient does not appear appropriate for PO intake at this time given known baseline dysphgia warranting puree diet, reported difficulty with PO intake earlier this admission, and significantly altered mental status at the time of this assessment. Patient with oral-motor patterns that indiate low sensory awareness and make adequate oral care very difficult at this time. Patient is unable to follow directions and when given ice chips, was unable to initiate reflexive or volitional swallow. Patient is at high risk for aspiration-related pulmonary complication, given oral hygiene status, mental status, presumed reduced immunocompetence, and possible aspiration PNA status; improvements in oral care, physical mobility and mental status likely to further reduce this risk. Further BOOK JACKET COVER MACHINE OPERATOR services warranted at this time (continued evaluation of swallow function, monitor for commencement of PO diet and least restrictive/safest optim al diet and strategies). Instrumentation: N/A Recommendations: Diet Texture Modification(s): N/A - NPO except for oral stimulation with intake risk management as outlined Assistive feeding only by BOOK JACKET COVER MACHINE OPERATOR at this time. Patient does not show any swallow initiation at this time. ORAL COMFORT/STIMULATION: For comfort, RN's or Family may provide sponges dipped in cold water or spoon dipped in ice water. Must provide oral care prior to oral stimulation trials per risk management recommendations below Medication Intake: NPO if possible, per MD medicaations to be administered via bolus at this time Alter medications only as advised by MD or Pharmacist RISK MANAGEMENT: Oral hygiene q4h/every 4 hours and before/after PO intake using friction with toothbrush/oral suction kit on all oral structures as tolerated HOB upright as tolerated; upright for all Encourage physical mobility as tolerated. Plan BOOK JACKET COVER MACHINE OPERATOR will continue to follow while on unit up to 4x weekly. Cap Sewer Goals: rat exterminator goals = Short term goals 1. Patient will tolerate least restrictive diet without s/sx aspiration with assistance to follow safe swallow strategies. 2. Patient/caregivers will demonstrate understanding of education related to normal vs disordered swallow function, s/sx aspiration, relationship between respiration and deglutition, and rationale for safe swallow strategies. Adele Blanco MS, [facility]-BOOK JACKET COVER MACHINE OPERATOR Speech Language Pathologist [phone] BOOK JACKET COVER MACHINE OPERATOR CPT Code: 37384 Clinical Swallowing Evaluation Time spent: 35 minutes Coding
[2021-06-21] MEDS: cefTRIAXone 1 GM/50 ML BAG IVPB (16:45)
[2021-06-21] MEDS: Enoxaparin 40 MG/0.4 ML SYR SC (16:45)
--- NOTE | 2021-06-21 18:07 | PDOC.CMPRO ---
- If Service Date Differs Date of service: 06/21/21 Time of Service: 18:07 Care Management Progress Note S/O: Alethea was resting when CM attempted to meet with her. Per report, she has been more interactive today, although still limited. She will have a speech consult today, as there is concern for her ability to swallow. CM spoke to her sister, Linda, who asked that a referral be sent to [facility] for her to go to upon discharge readiness. CM explained that she does have a home at [facility], which is where she will return to if another bed is not available when she becomes medically cleared. CM sent a referral to [facility] for review. CM will continue to follow. A: Alethea is a 75 year old female admitted to [facility] on 06/19/21 with UTI, dehydration. P: Anticipate Alethea will return to [facility] vs go to [facility] when she is medically cleared by . Her transport will depend on her mobility at time of discharge. She will follow up with her PCP and discharge plan of care. CM will continue to follow.
[2021-06-21] MEDS: PANTOPRAZOLE 40 MG in Normal Saline 100 ML 10 MG IV (20:23)
[2021-06-21] MEDS: Mirtazapine 15 MG TAB PO (20:59)
[2021-06-21] MEDS: Potassium Chloride 10 MEQ CAPCR 20 MEQ PO (20:59)
[2021-06-21] MEDS: risperiDONE 1 MG TAB PO (21:00)
[2021-06-22] VITALS (11 sets, daily range): BP systolic 90–102; BP diastolic 56–64; PULSE 69–80; RESP 16–20; TEMP 36.5–38.4; O2SAT 94–98
--- NOTE | 2021-06-22 | DI.RAD_ITS ---
Exam(s) XR SHOULDER RT COMPLETE 2+V EXAM: XR SHOULDER RT COMPLETE 2+V CLINICAL HISTORY: pain with abduction. TECHNIQUE: 2D digital imaging was performed of the right shoulder. Three images were obtained. AP, Grashey and axillary views were obtained. COMPARISON: No exams were available for comparison FINDINGS: BONES: No acute fracture is present. No bony destructive lesion is seen. JOINTS: No dislocation present. SOFT TISSUE: Normal. There is a surgical clip in the soft tissues along the right chest wall. IMPRESSION: No acute abnormality. DATA REPOSITORY: RADIATION DOSE DELIVERED:
--- NOTE | 2021-06-22 | DI.MRI_ITS ---
Exam(s) MR BRAIN WO EXAM: MR BRAIN WO CLINICAL HISTORY: flacid right arm TECHNIQUE: Multiplanar multisequence MRI of the brain was performed. COMPARISON: CT CT HEAD WO from 06/19/[address] HEAD WO from 06/19/2021 FINDINGS: VENTRICLES AND EXTRA AXIAL SPACES: Normal in size and morphology for the patient's age. MIDLINE SHIFT: None. CEREBRAL PARENCHYMA: No focus of restricted diffusion to suggest acute infarct. No space-occupying le rachel identified. There are areas of hyperintense signal on the FLAIR and T2 weighted images in the wh ite matter most consistent with chronic microvascular ischemic disease. There is a focus of hypointe nse signal on the gradient images in the medial left cerebellum. This can be seen with prior hemorrh age/white matter injury, demyelinating process, vasculitis, amyloid or infectious or inflammatory pro cesses.. HEMORRHAGE: There is a 2 mm thin subdural fluid collection along the left parietal occipital convexit y. It displays hyperintense signal on both the T1 and T2 weighted images. There is no associated ma ss effect. BRAINSTEM/CEREBELLUM: Normal. CALVARIUM: Normal. VISUALIZED PARANASAL SINUSES/MASTOIDS:Clear. [place]: Normal flow void. PITUITARY GLAND: Unremarkable. OTHER FINDINGS: None. IMPRESSION: 1. 2 mm subdural fluid collection along the left parietal occipital convexity. Given the lack of acu te blood products on the CT of the brain from 06/19/2021, findings likely represent a chronic subdura l hematoma. 2. No evidence of an acute infarct. DATA REPOSITORY:
--- NOTE | 2021-06-22 | DI.CT_ITS ---
Exam(s) CT UPPER EXTREMITY RT WO EXAM: CT UPPER EXTREMITY RT WO CLINICAL HISTORY: right shoulder pain. TECHNIQUE: Imaging Protocol: Axial computed tomography images with coronal and sagittal reformatted images were created and reviewed. COMPARISON: CR,XR XR SHOULDER RT COMPLETE 2+V from 06/22/2021 CR,XR XR SHOULDER RT COMPLETE 2+V from 06/22/2021 FINDINGS: Bones: The osseous structures and articular surfaces are intact. Bony alignment is satisfactory. N o cellulitic or osteomyelitic changes are identified. Mild degenerative changes are seen at the acro mioclavicular joint. No lytic or sclerotic lesions are identified. Soft Tissues: Normal. Lungs: There is an infiltrate incompletely imaged in the right lower lobe. Mild pleural thickening p osteriorly in the right hemithorax. IMPRESSION: 1. No acute fracture or dislocation. 2. Infiltrate seen in the right lower lobe. RADIATION DOSE DELIVERED: 200.68mGy.cm Total DLP 200.68mGy.cm Total DLP DATA REPOSITORY: All CT scans at this facility are submitted to the National Radiology Data Registry (NRDR) Dose Index Registry (DIR) with the [employer] (ACR). RADIATION OPTIMIZATION: All CT scans at this facility use at least one of these dose optimization te chniques: automated exposure control; mA and/or kV adjustment per patient size (includes targeted exa ms where dose is matched to clinical indication); or iterative reconstruction.
[2021-06-22] MEDS: LORazepam 2 MG/ML VIAL 1 MG IVP ×2 (01:54→05:31)
[2021-06-22] MEDS: Normal Saline Flush 10 ML SYR IVP (01:55)
[2021-06-22 07:27] LABS: Anion Gap 2.5 mmol/L (3-11); BUN 4 mg/dL (7-18); CO2 30.5 mmol/L (21.0-32.0); CREATININE 0.6 mg/dL (0.55-1.02); Calcium 7.9 mg/dL (8.5-10.1); Chloride 112 mmol/L (98-107); Glucose 133 mg/dL (74-106); Magnesium 1.9 mg/dL (1.8-2.4); Potassium 3.7 mmol/L (3.5-5.1); Sodium 145 mmol/L (136-145)
--- NOTE | 2021-06-22 13:28 | W.NUTCONSULT ---
Date of service: 06/22/21 Time of Service: 13:28 Nutritional Consult ASSESSMENT: Ms. Lo has been made NPO as suggested by speech evjonathan. They assessed that d/t her mental status she is unsafe to take PO. She is 48.7 kg. Her BMI is 19.6 kg/m2 which is WNL. I do not have any previous weights from any prior admissions to assess if her weight has been stable over the year. NUTRITIONAL DIAGNOSIS: Inability to take oral foods and fluids related to high risk of aspiration with PO. INTERVENTION: Would consider tube feedings to provide nutrition for Ms. Lo if she is unable to take PO within the next 5 days and if it is consistent with her wishes. MONITORING AND EVALUATION: Will continue to monitor nutritional status. Will evaluate nutrition care plan ongoing and adjust as needed. Time Spent in Nutritional Counseling and Treatment: 0
--- NOTE | 2021-06-22 15:37 | PT.INTREAT ---
Date of service: 06/22/21 Time of Service: 14:05 PT Notes Visit Reasons: UTI, Dehydration, ? PNA Inpatient Physical Therapy Treatment Note [facility] Date: 06/22/2021 PRECAUTIONS: Fall, AMS SUBJECTIVE: Alethea responds minimally to my questions. She agrees to standing up to be changed. Her sister Bryan was present in the room, stating that she has been having a two way conversation with Alethea this afternoon. OBJECTIVE: Patient's R UE noted to be flaccid during session, reported to nursing and Hospitalist provider. PAIN: Patient c/o pain with pressure to R UE, although refuses to specify pain location or rating. BED MOBILITY/TRANSFERS Sit-stand: Max A x2 Stand-sit: Max A x2 GAIT: Unable ASSESSMENT: Patient requires Max A x2 for all movement. She responds minimally, and does not appear to be a candidate for participation in PT at this time due to safety concern due to AMS and severe global weakness. PLAN: Patient to be discharged from PT services at this time, as she is not appropriate at this time. TREATMENT CODE/TIME: 18 minutes; 98564 (14:05)
--- NOTE | 2021-06-22 15:54 | SPP_ITS ---
Date of service: 06/22/21 Time of Service: 15:00 Subjective Speech-Language/Swallowing Pathology Dysphagia Daily Treatment Note Medical Diagnosis: DVT prophylaxis, Hypernatremia, Acute UTI, Elevated troponin, Bipolar 2 disorder (major depressive episode), Flat affect, Catatonia associated with another mental disorder, Parkinsonism due to drugs. Therapy Diagnosis: Dysphagia, Unspecified. Current Level of Care: Inpatient. Subjective: Pt?s sister present when REGISTERED REPRESENTATIVE arrived for tx session. Pt was sitting reclined in bedside chair and found to be minimally responsive to others in the room, including given verbal and tactile cues. Pt marginally answered a couple of yes/no questions, primarily when posed by familiar caregiver. Spontaneous productions heard by REGISTERED REPRESENTATIVE today included: okay. Swallow Treatment Techniques: Neuromuscular re-education. PO trials/safe swallowing strategies/techniques trials. Diet modification/analysis. Staff education/training. Pt/Caregiver/Staff Education: Pt?s sister was educated regarding anatomy/physiology of swallowing mechanism, specifically with regards to oral- motor skills necessary for safe and effective swallowing as well as A-P transport for swallow initiation. Rationales for not providing liquids to the pt today given high risk of aspiration were discussed with sibling. POC with regards to treatment reviewed with sibling and the staff. Strategies to promote oral cavity opening, including use of cold temperature, for increased opportunity for adequate oral care discussed with staff. Recommendation to continue current NPO status communicated. Assessment: Pt minimally responsive to REGISTERED REPRESENTATIVE trials today, which included use of popsicle, cold spoon, and straw, in addition to implementation of verbal and tactile cues for oral cavity opening. Pt did not round her lips or open her mouth upon request to receive cold spoon, nor show functional movement when spoo n touched her mouth. This was trialed to consider for possible implementation method for liquids or solids. Pt did not show adequate skills to receive via this method. Straw also presented to pt?s lips (not associated with any drinks) to assess for oral-motor skills, but unfortunately, pt showed no functional response to the straw (despite her sister describing her drinking from a straw this past Monday). Pt was most responsive to a frozen popsicle, showing evidence of minimal lip rounding given temperature stimulation. Pt progressed to intermittently opening her mouth (though minimally) upon request to receive popsicle on lips, given temperature stimulation and verbal cues. Please note pt response was not consistent across trials. Pt was noted to purse her lips together x2 when juice was pooling on her the lips, however, no use of tongue to lick or further movement to remove material from lips with REGISTERED REPRESENTATIVE ultimately wiping residue and labial leakage away. Pt did not evidence volitional swallow across trials today. Pt does not show functional lingual movement or resting posture as her tongue was seen resting protruded and between her teeth, including when REGISTERED REPRESENTATIVE attempted to administer tactile cues and stimulation with tongue depressor. Highly suspect lack of lingual movement, especially A-P, which compromises her ability to manage a bolus. She is therefore not appropriate for diet upgrade at this time and is advised to remain NPO. She is however, recommended to continue to receive oral comfort/stimulation with family and staff as well as further daily treatment sessions with REGISTERED REPRESENTATIVE for neuromuscular re-education, diagnostic treatment to assess swallow function, and diet modification/analysis. Staff should consider presenting cold temperature stimulation to pt?s lips while verba lly cueing her to ?open? her mouth when attempting oral care. Treatment Plan: Continue as per POC. Charge Code: 51832-Bnbstbftc of Swallowing Dysfunction Time In: 3:00 pm Time Out: 3:40 pm Total Time: 40 minutes Coding
--- NOTE | 2021-06-22 16:11 | W.PM.PROGNOT ---
Date of Service Date of service: 06/22/21 Time of Service: 16:12 Assessment and Plan Assessment and plan (1) Right sided weakness: Status: Acute Assessment and plan: MRI pending. sister reports not new and possibly had these symptoms since March (2) Right shoulder pain: Status: Acute Assessment and plan: xray pending. (3) Hypernatremia: Status: Resolved Assessment and plan: normalized. will continue IV hydration as she is unable to take po d/t altered mental status follow labs (4) Acute UTI: Status: Acute Assessment and plan: pansenstive e coli growing in the urine. continue ceftriaxone day 3/. blood cultures with contaminant, no ecoli seen. (5) Elevated troponin: Status: Resolved Assessment and plan: Trop leaking likely d/t dehydration remained flat, no further monitoring needed (6) Catatonia associated with another mental disorder: Status: Chronic Assessment and plan: essentially unresponsive, not following commands or responding verbally. Given ativan 1 mg IVP q 6 H x 24 H with did not improve symptoms. MRI pending continue NPO until awake, speech therapy on hold until responsive PT on hold for now also (7) Bipolar 2 disorder, major depressive episode: Status: Chronic Assessment and plan: continue risperdal and mirtazpem when able to take po (8) 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 Assessment and plan: continue to hold Sinemet will consult PT and Palliative PT is on hold at this time due to patient state. Will work with her when she more alert (9) DVT prophylaxis: Status: Acute Assessment and plan: Enoxaparin (10) Discharge planning issues: Status: Acute Assessment and plan: Back to assisted living when medically ready palliative care consult case management following discussed with Dr. Cross Subjective Subjective Interval history since last seen: does not follow commands or respond verbally on my exam. has remained NPO accordingly. no fevers, hemodynamically stable. noted right side flaccid with right facial droop. Exam Const General: no acute distress, frail appearing and ill appearing (older than stated age) chronically Nutritional Appearance: thin Orientation: obtunded Limitations: altered mental status [facility] Head: normal to inspection, normocephalic and atraumatic Mouth: moist mucous membranes abnormal (dry) Chest Chest: normal inspection of the chest Resp Effort & Inspection: normal respiratory effort (respirations even and unlabored. ) Cardio Rate: regular rate Rhythm: regular rhythm GI Inspection: normal to inspection Palpation: soft Skin Lesions: lesion noted (mepilex on coccyx intact) Neuro General: patient obtunded Cognition: abnormal cognition Motor: muscle tone abnormal (right flaccid) Extrem General: no pedal edema Right upper extremity: shoulder/upper arm (winces to abduction of right shoulder at 90 degrees) Objective Last Vital Signs Temp 36.5 C 06/22/21 08:24 Pulse 69 06/22/21 08:24 Resp 20 06/22/21 08:24 BP 98/60 L 06/22/21 08:24 Pulse Ox 94 06/22/21 08:24 Laboratory Results - last 24 hr 06/22/21 06:35 Sodium 145 Potassium 3.7 Chloride 112 H Carbon Dioxide 30.5 Anion Gap 2.5 L BUN 4 L Creatinine 0.6 Estimated GFR/1.73 m2 >= 60.00 Glucose 133 H Calcium 7.9 L Magnesium 1.9
--- NOTE | 2021-06-22 16:56 | DI.VRAD_ITS ---
PROCEDURE INFORMATION: Exam: MR Head Without Contrast Exam date and time: 06/22/2021 4:21 PM Age: 75 years old Clinical indication: Other: Flacid right arm TECHNIQUE: Imaging protocol: MR of the head without contrast. COMPARISON: CT HEAD WO 06/19/2021 2:14 PM FINDINGS: Brain: Age-indeterminate 2 mm subdural fluid collection along the left parietooccipital convexity. Given the absence of acute/hyperdense blood products on the recent head CT, finding likely represents trace chronic subdural hematoma. Focal microhemorrhage in the medial left cerebellar hemisphere, possibly hypertensive. No confluent parenchymal hematoma. No acute infarction. Diffuse parenchymal volume loss and moderate nonspecific T2/FLAIR hyperintense signal abnormality in the periventricular and subcortical white matter, likely reflecting chronic microangiopathy. Chronic lacunar infarcts in the bilateral basal ganglia. Cerebral ventricles: No hydrocephalus. No midline shift. Bones/joints: No suspicious calvarial lesion. Paranasal sinuses: Unremarkable. Mastoid air cells: No mastoid effusion. Orbital cavity: Unremarkable. Soft tissues: Unremarkable. IMPRESSION: Age-indeterminate 2 mm subdural fluid collection along the left parietooccipital convexity. Given the absence of acute/hyperdense blood products on the recent head CT, finding likely represents trace chronic subdural hematoma. Otherwise, no acute intracranial abnormality. Dictated and Authenticated by: Elizabeth Gage MD. Ordering:LIZZY Lemus MD
--- NOTE | 2021-06-22 17:36 | CHAPLAIN ---
Alethea was sleeping, or seemed to be, when I visited. I spoke with her sister, Linda and introduced myself and explained my role. According to Care Management notes, Alethea lived independently until she fell in March. She was down for a couple of days and had rabdo. Since that time, Alethea has been at [facility] is moving and speaking less according to Linda.
--- NOTE | 2021-06-22 17:40 | DI.VRAD_ITS ---
PROCEDURE INFORMATION: Exam: XR Right Shoulder Exam date and time: 06/22/2021 4:06 PM Age: 75 years old Clinical indication: Other: Pain with abduction TECHNIQUE: Imaging protocol: XR Right shoulder. Views: 2 or more views. COMPARISON: XR CHEST 1V IN DI DEPT 06/19/2021 2:25 PM FINDINGS: Bones/joints: Normal. Soft tissues: Right chest wall surgical clips noted. IMPRESSION: No evidence for acute abnormality. Dictated and Authenticated by: Yaneth Teixeira MD. Ordering:LIZZY Lemus MD
[2021-06-22] MEDS: cefTRIAXone 1 GM/50 ML BAG IVPB (17:58)
[2021-06-22] MEDS: Enoxaparin 40 MG/0.4 ML SYR SC (17:58)
--- NOTE | 2021-06-22 18:13 | DI.VRAD_ITS ---
PROCEDURE INFORMATION: Exam: CT Right Upper Extremity Without Contrast, Shoulder Exam date and time: 06/22/2021 5:16 PM Age: 75 years old Clinical indication: Other: Right shoulder pain TECHNIQUE: Imaging protocol: CT of the Right upper extremity without contrast was performed. Exam focused on the shoulder. Radiation optimization: All CT scans at this facility use at least one of these dose optimization techniques: automated exposure control; mA and/or kV adjustment per patient size (includes targeted exams where dose is matched to clinical indication); or iterative reconstruction. COMPARISON: CR XR SHOULDER RT COMPLETE 2+V 06/22/2021 4:53 PM FINDINGS: Bones/joints: Normal. No acute fracture or dislocation. Soft tissues: Normal. Lungs: There is fluffy ill-defined airspace disease seen in the superior segment right lower lobe. There is some minimal patchy right upper lobe pleural thickening. IMPRESSION: 1. Right lower lobe airspace disease with mild right pleural thickening laterally. 2. No acute shoulder abnormality evident to account for symptoms. Dictated and Authenticated by: Yaneth Teixeira MD. Ordering:LIZZY Lemus MD
--- NOTE | 2021-06-22 18:34 | CMPROGNOTE_ITS ---
- If Service Date Differs Date of service: 06/22/21 Time of Service: 18:34 Care Management Progress Note S/O: Alethea was sitting up in her chair today, but was not able to make eye contact or engage in conversation with CM. She did make noise, which appeared to be a verbal response to CM when CM asked her questions. CM met with her sister later, who is very concerned with Alethea's presentation. She is advocating for Alethea to go to [facility] after this admission. CM followed up on a referral sent, and discussed her with [facility]. Meliton at [facility] stated that she would be accepted if they have Speech therapy available, which they currently do not, or if she is stable enough to see Speech therapy out patient. Palliative will see her tomorrow. CM will continue to follow. A: Alethea is a 75 year old female admitted to [facility] on 06/19/21 with UTI, dehydration. P: Anticipate Alethea will return to [facility] vs go to [facility] when she is medically cleared by . Her transport will depend on her mobility at time of discharge. She will follow up with her PCP and discharge plan of care. CM will continue to follow.
[2021-06-22] MEDS: PANTOPRAZOLE 40 MG in Normal Saline 100 ML 10 MG IV (21:45)
[2021-06-22] MEDS: ACETAMINOPHEN 1,000 MG/100 ML BTL 400 MG IVPB (22:13)
[2021-06-23] VITALS (13 sets, daily range): BP systolic 84–103; BP diastolic 50–65; PULSE 63–99; RESP 16–18; TEMP 36–38; O2SAT 93–98
[2021-06-23] MEDS: DEXTROSE 5%-LACTATED RINGERS 1,000 ML 75 ML IV ×2 (04:53→20:24)
--- NOTE | 2021-06-23 10:36 | W.PM.PROGNOT ---
Date of Service Date of service: 06/23/21 Time of Service: 10:36 Assessment and Plan Assessment and plan (1) Right sided weakness: Status: Resolved Assessment and plan: MRI unremarkable, awake and moving all extremities, but with weakness bilaterally sister reports not new and possibly had these symptoms since March (2) Right shoulder pain: Status: Acute Assessment and plan: ct with no acute bony abnormalities. 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 continue ceftriaxone day 4/. blood cultures with contaminant, no ecoli seen. (8) DVT prophylaxis: Status: Acute Assessment and plan: Enoxaparin (9) Discharge planning issues: Status: Acute Assessment and plan: Back to assisted living when medically ready palliative care consult case management following discussed with Dr. Cross Subjective Subjective Interval history since last seen: patient awake now and following commands. no motor deficit noted. Exam Const General: cooperative, no acute distress, frail appearing and ill appearing (older than stated age) chronically Nutritional Appearance: thin Orientation: alert, awake and oriented to person [facility] Head: normal to inspection, normocephalic and atraumatic Mouth: moist mucous membranes abnormal (dry) Eyes General: appearance normal, both eyes and all related structures Chest Chest: normal inspection of the chest Resp Effort & Inspection: normal respiratory effort (respirations even and unlabored. ) Cardio Rate: regular rate Rhythm: regular rhythm GI Inspection: normal to inspection Palpation: soft Auscultation: normal bowel sounds Skin Lesions: lesion noted (mepilex on coccyx intact) Neuro General: patient alert, patient awake, oriented Patient Orientation: Person, moves all extremities and no focal motor deficits Extrem General: no pedal edema Objective Last Vital Signs Temp 36.0 C L 12/22/21 07:31 Pulse 63 06/23/21 09:26 Resp 18 06/23/21 07:31 BP 100/65 06/23/21 07:31 Pulse Ox 95 06/23/21 07:31
--- NOTE | 2021-06-23 11:48 | CMPROGNOTE_ITS ---
- If Service Date Differs Date of service: 06/23/21 Time of Service: 11:48 Care Management Progress Note S/O: Alethea was sitting up in her chair when CM met with her. She was alert and engaged in conversation, which was a huge improvement from previous visits. Her sister, Linda was in the room, and was very happy about her improvement. She was seen by Palliative care today, with her sister present. Linda reported that she has documents that she will send via email to be uploaded to Alethea's chart, including DPOA, as well as COLST/AD. Per provider, Alethea will likely be ready for discharge tomorrow, as she is doing well clinically. CM contacted [facility], who reported that they do not have Speech therapy available. CM informed Meliton at [facility] that Alethea would still like to transfer once speech is available. Alethea will return to [facility] once she is medically cleared. CM will continue to follow. A: Alethea is a 75 year old female admitted to [facility] on 06/19/21 with UTI, dehydration. P: Anticipate Alethea will return to [facility] vs go to [facility] when she is medically cleared by . Her transport will depend on her mobility at time of discharge. She will follow up with her PCP and discharge plan of care. CM will continue to follow.
[2021-06-23] MEDS: Enoxaparin 40 MG/0.4 ML SYR SC (15:55)
[2021-06-23] MEDS: cefTRIAXone 1 GM/50 ML BAG IVPB (15:55)
--- NOTE | 2021-06-23 16:28 | W.PALLCONSUL ---
Date of service: 06/23/21 Time of Service: 14:28 History of Present Illness History of Present Illness Chief Complaint: Parkinsonism due to drugs Narrative: 75 y/o Ms. Joe admitted to [facility] 2/2 hypernatremia (resolved), catatonia (resolved), R sided weakness (resolving, MRI shows no acute findings), was seen by [facility] today consult for GOC Upon arrival to Ms. Joe's room she was sitting comfortably w/sister Les, upright, eyes open and able to make eye contact; Ms. Joe had no major complaints today, was able to answer direct questions w/1-4 word answers and was eager to begin taking nourishment and medications by mouth today. Both pt and Les were aware that in order for discharge to [facility] (w/o OUTBOUND SALES EXECUTIVE services at this time) she would need to be cleared from OUTBOUND SALES EXECUTIVE; they are aware that pt is ready for discharge and agreeable, for short term, discharge back to [facility]. Les expresses a strong desire to not return to [facility] and will continue to advocate for a nunez transfer to [facility] d/t concerns of inadequate care at [facility] and Pt and Les provide report that DPOA has been completed for finances, brother Ken listed as agent; unclear on whom is listed as health care agent, appears that Les and pt would like Ken listed for health care as well; they believe this paperwork has been completed, including a COLST from PCP Dr. Rico w/[facility], their understanding that these were on file at [facility]. I asked about life sustaining therapies including artificially administered nutrition and what pt had designated on COLST form, she confirms option of trial period of feeding tube. Les confirms Sinemet as d/c'd after hospital admit, believes it was started on Mon06/16/21 evening; stopped in hospital 2/2 potential effects on catatonia; will continue to hold pending consult w/neurology, scheduled 07/12/20 w/Dr. Weber. Pt denies pain; is working on moving extremities and hoping to feel stronger; reports mouth is dry and is looking forward to trialling liquids today; reports is feeling some tiredness Consults Consult date: 06/19/21 Requesting physician: Jennifer Peck Assessment and Plan Assessment and plan (1) Discharge planning issues: Status: Acute Assessment and plan: Les preference for discharge to [facility], no OUTBOUND SALES EXECUTIVE available there, working on contract, CM to follow; [facility] has OUTBOUND SALES EXECUTIVE available, ready for pt to return (2) Bipolar 2 disorder, major depressive episode: Status: Chronic Assessment and plan: stopped Sinamet, hold for now until further eval (3) Health care proxy on file: Status: Acute Assessment and plan: [facility] does not have health proxy on file, pt verbalized preference for brother Ken to be listed as primary agent; Les is highly engaged in care, not listed at this time, her phone is [phone]; contacting [facility] for COLST/health care agent on file if available (4) 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 Assessment and plan: Sinemet started 06/16/21, stopped w/hospitalization, continue to hold until neurology appt (5) Palliative care patient: Status: Acute Assessment and plan: f/b [facility], will follow closely on discharge to and , pending transfer to [facility] (6) longterm resident: Status: Acute Assessment and plan: to return to [facility] and until cleared by OUTBOUND SALES EXECUTIVE Review of Systems Narrative: pt awake, able to move all 4 extremities, able to take 3 sips of thickened water appropriately; see HPI PFSH All Active Problems (Updated 06/23/21 @ 15:13 by Mariah Flores NP) Right shoulder pain (Acute) Discharge planning issues (Acute) DVT prophylaxis (Acute) Acute UTI (Acute) Bipolar 2 disorder, major depressive episode (Chronic) Dr Coates, [facility], [place] office Health care proxy on file (Acute) Shuffling gait (Acute) Tremor (Acute) History of rhabdomyolysis (Acute) 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 of catatonia hospitalized for same in past Psychiatric illness (Chronic) for many years Parkinsonism due to drugs (Chronic) psychiatric medications Frequent falls (Acute) Palliative care patient (Acute) longterm resident (Acute) Malignant neoplasm of right breast (Chronic) in remission Anxiety (Acute) Medical History Acute kidney failure Dysphagia, oropharyngeal phase GERD (gastroesophageal reflux disease) Glaucoma Major depressive disorder Osteoporosis 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 Brother No problems noted. Sister No problems noted. 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 Pets and animals: Yes Pets and animals: dog(s) Current gender identity: female What is your relationship status?: never How often do you talk on the phone with friends or family?: three or more times per week How often do you get together with friends or relatives?: twice per week Panel score (0-1 are the most socially isolated patients): 1 What type of physical activity do you participate in: none and sedentary lifestyle Special ayaka needs: No Seatbelt use: always Working smoke detector in home: Yes Fire extinguisher in home: Yes In current or past relationships, have you been: made to feel afraid Do you feel safe in your relationship?: Yes Additional Social history: Tatyana spoke very little. Her roommate says she says only a handful of words all day. When I was present, her sister Bryan called. She told me that she speaks to Tatyana every day. She explained that Tatyana had recently moved into a new apartment. She fell and was down for some hours. She went to the local hospital and was found to have rhabdo and SHEREEN. Tatyana falls frequently. Bryan asks if her Parkinson's Disease is due to psychiatric medications. Tatyana has struggled with mental illness for years. She has a psychiatrist. She has been hospitalized multiple times in the past. She is prone to episodes of catatonia. Bryan is very committed to advocating for her sister and providing as much care as she can, given limitations of a bad back. (NO lifting,etc). Exam Const General: comfortable Orientation: awake and obtunded Limitations: behavioral limitations and physical limitations [facility] Head: normal to inspection and normocephalic General nose exam: external nose normal Neck Neck: normal visual inspection, trachea midline and no JVD Resp Effort & Inspection: normal respiratory effort, no audible wheezes and no cough Skin General skin exam: no rashes or lesions noted Neuro General: patient alert, patient awake, oriented Patient Orientation: Person and Place and moves all extremities Psych Speech and Movement: slowed movement Affect: labile affect Attitude: cooperative Insight: poor Judgment: poor Results Last Vital Signs Temp 97.9 F 06/23/21 15:58 Pulse 68 06/23/21 15:58 Resp 16 06/23/21 15:58 BP 84/63 L 06/23/21 15:58 Pulse Ox 93 06/23/21 15:58 Labs Result diagrams: 06/21/21 06:45 06/22/21 06:35
[2021-06-23] MEDS: Potassium Chloride 10 MEQ CAPCR 20 MEQ PO (20:18)
[2021-06-23] MEDS: PANTOPRAZOLE 40 MG in Normal Saline 100 ML 10 MG IV (20:24)
[2021-06-23] MEDS: ACETAMINOPHEN 1,000 MG/100 ML BTL 400 MG IVPB (20:29)
[2021-06-24 03:05] VITALS: BP 94/62; PULSE 60; RESP 18; TEMP 36.3; O2SAT 97
[2021-06-24 07:01] VITALS: PULSE 72
[2021-06-24 07:02] LABS: Platelet Count 176 10^3/uL (130-400)
[2021-06-24 07:42] VITALS: BP 101/61; PULSE 73; RESP 17; TEMP 36.7; O2SAT 96
[2021-06-24] MEDS: Potassium Chloride 10 MEQ CAPCR 20 MEQ PO (08:15)
--- NOTE | 2021-06-24 08:29 | INDS_ITS ---
Date of service: 06/24/21 PT Notes Visit Reasons: UTI, Dehydration, ? PNA Physical Therapy Inpatient Discharge Summary Date: 06/24/21 Dates of Service: 06/20/2021 and 06/22/2021 only This is a clinical summary of care provided for the duration of dates listed above. No charge was made in the completion of this documentation. Referring Doctor: Jennifer Peck NP PT Orders: PT CONSULT: Eval & treat Precautions: Fall. Standard. Patient Profile/Admitting Diagnosis: Alethea is a 75 yo female that presented to the ER on 06/19/21 from [facility] in with concerns for dehydration. Determined to also have UTI. [facility] Sister is concerned if being properly cared for. PMHX: Updated 06/19/21 @ 16:05 by Jennifer Peck NP) Discharge planning issues (Acute) DVT prophylaxis (Acute) Hypernatremia (Acute) Acute UTI (Acute) Elevated troponin (Acute) Bipolar 2 disorder, major depressive episode (Chronic) Dr Coates, [facility], [place] office Health care proxy on file (Acute) Flat affect (Acute) Shuffling gait (Acute) Tremor (Acute) History of rhabdomyolysis (Acute) 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 of catatonia hospitalized for same in past Psychiatric illness (Chronic) for many years Parkinsonism due to drugs (Chronic) psychiatric medications Frequent falls (Acute) Palliative care patient (Acute) snf resident (Acute) Malignant neoplasm of right breast (Chronic) in remission Anxiety (Acute) Acute kidney failure Dysphagia, oropharyngeal phase GERD (gastroesophageal reflux disease) Glaucoma Major depressive disorder Osteoporosis Unspecified disorder of adult personality and behavior Venous thrombosis and embolism Vitamin B deficiency, unspecified Social History/Home Situation: [facility] Sister is active in her care. Equipment Owned/DME: Unknown Subjective: NT. See most recent BIOTECHNOLOGIST notes. Objective: General Observation: NT. See most recent BIOTECHNOLOGIST notes. Mental Status: NT. See most recent BIOTECHNOLOGIST notes. Pain: NT. See most recent BIOTECHNOLOGIST notes. ROM: Upper and lower extremity ROM within functional limits passively. Patient demonstrates no active participation. Strength: Unable to assess as patient not active with assessment or able to follow cues. Sensation: Unknown Bed Mobility/Transfers: Rolling: Dependent Supine to sit: Dependent Sit to supine: Dependent Sit to stand: Not assessed Stand to sit: Not assessed Gait: Unable to test. Balance: Unable to test. Special Tests: Mobility Limitations Standardized Measure [facility] AM-PAC 6 clicks Basic Mobility Inpatient Short Form: Raw Score: 6 CMS Score: 100% Informed Consent/Education: Referral from MD received for PT evaluation. Assessment: No skilled services were given for the patient due to unresponsive ness on 06/21/21. GROUND WIRER Mariah indicated that patient is now awake and is verbal. Patient continues to present with clinical signs and symptoms consistent with current/admitting diagnoses that have resulted to mobility limitations, gait instability, generalized weakness, and impairment of motor control as demonstrated by the following impairment level findings: 1. Decreased strength to all major muscle groups 2. Impaired sitting/standing balance 3. Impaired activity tolerance 4. Decreased level of alertness Impairments are contributing to the following functional limitations: 1. Dependent bed mobility skills 2. Dependent with transfers 3. Inability to safely ambulate 4. Dependent with ADLs 5. Increased fall risk Goals: Goals x1 week 1. Supine-Sit: Min A NOT MET 2. Sit-Supine: Min A NOT MET 3. Sit-Stand: Mod A NOT MET DISCHARGE RECOMMENDATIONS: [] Home with no services [] [] Home with services [specify] [] Home with outpatient PT [] [] SNF for continued rehabilitation [] [X] [facility]. Patient will benefit from alf facility placement for continued skilled physical therapy services in order to progress mobility level, strength, and balance. Good candidate for long-term care placement. [] SNF versus LTC based on ability to participate and progress [] TREATMENT CODE/TIME: [place] Thank you for the opportunity to participate in the care of this patient. Debo Eastman PT, DPT, CLT [facility] [place], [place]
[2021-06-24] MEDS: DEXTROSE 5%-LACTATED RINGERS 1,000 ML 75 ML IV (10:21)
--- NOTE | 2021-06-24 10:53 | SPP_ITS ---
Date of service: 06/24/21 Time of Service: 10:00 Subjective Contacted patient in her room where she sat upright in her chair at bedside. Notably increased verbal responsiveness this date (though minimal spontaneous intitiation, primarily only providing responses to clinician instructions/questions. Patient alert, polite, using full sentences no longer with resting open mouth position. Appearing highly fatigued. Objective/Assessment/Plan Objective Treatment Techniques & Outcomes: senior living goals = Short term goals 1. Patient will tolerate least restrictive diet without s/sx aspiration with assistance to follow safe swallow strategies. Thin liquids: S/Sx aspiration (coughing) with cup sip (head tilt) > straw, improved with small sip size controlled by care provider. Significant anterior spillage which is improved with use of straw. Mildly thick liquids: No s/sx aspiration. Puree: No overt s/sx aspiration, mild-mod oral residue, cleared with small sip liquid. Mild wet vocal quality after multiple trials, improved with implementation of extra swallow. Regular solid: Severely prolonged mastication, difficulty with oral clearance. Required puree chaser to clear. Noting low sensory awareness (e.g., patient attempting to feed herself as if she is holding a spoon she is not holding.) Patient also reporting swallow completion when no swallow initiation noted to palpation. Noting weak cough (volitional and reflexive). Difficulty with self-feeding, requiring ROSEBUD assist to reach cup to mouth, etc. Appearing significantly fatigued. 2. Patient/caregivers will demonstrate understanding of education related to normal vs disordered swallow function, s/sx aspiration, relationship between respiration and deglutition, and rationale for safe swallow strategies. Education provided to: Patient, RN - verbalizing understanding. [x] Anatomy/physiology of swallowing mechanism [x] Overt s/sx aspiration [x] Rationale for improved oral care and instructions [x] Relationship between respiratory fxn and deglutition [x] Rationale for recommended diet & strategies as below [ ] Reflux precautions Assessment Appears with mod to severe oral pharyngeal dysphagia at this time with overt s/sx aspiration noted today with thin liquids. Dysphagia characterized by low sensory awareness, generalized weakness affecting oral-pharyngeal strength, coordination, and delayed initiation. in addition patient demonstrates some difficulty with oral containment (anterior and posterior) which puts her at particular risk of aspiration with thin liquids. Suspect oral-pharyngeal swallow function is partially explained by recent lack of use of swallow musculature and will continue to improve with continued therapeutic trials with FLAME HARDENER at discharge facility, as well as overall improvement of medical deconditioning, fatigue. Patient would benefit from modified diet consistency (puree, mildly thickened liquids) during mealtimes due to the above factors and to minimize negative impacts of fatigue and to decrease risk of aspiration, malnutrition. She would be appropriate for trials of thin liquids in between meals with FLAME HARDENER or trained caregiver, as long as diligent oral care is provided before and after all PO intake. Plan Plan: Patient to d/c this date. Requires FLAME HARDENER services for dysphagia at d/c facility. Recommendations Diet: 4-Pureed/Extremely Thick Liquids: 2-Mildly Thick/Flat [place] Thick Other: OK TO PROVIDE THIN LIQUID TRIALS BETWEEN MEALS WITH DILIGENT ORAL CARE PROVIDED ONLY WITH FLAME HARDENER or TRAINED care provider, following recommendations as below. Recommendations: Discharge: SNF or facility with FLAME HARDENER services on site. RECOMMENDATIONS: Medication Intake: Whole with [4-Extremely Thick Liquids (pudding)] Alter medications only as advised by MD or Pharmacist Level of assistance: 1:1 assist Oral Care: 4x daily / before/after all PO intake General swallow precautions: Only eat when upright and alert Pace rate of intake Reduce distractions (TV, conversation) Small bite size & sip size Oral care 2+ times/day to reduce oral bacteria Remain upright for 30+ min following meals, and 1-2hrs before bedtime Personalized swallow precautions: [x] Straws OK with assist to control sip size [x] Extra swallows between bites/sips [ ] Clear your throat after bites/sips [ ] Swallow HARD [x] Alternate sips/bites (liquid wash) [ ] Puree/pudding ?chaser? to reduce oral residue [ ] Tilt chin forward before and during [x] Check oral cavity is clear before proceeding Total Time Spent: 35 minutes Code: 51785 Swallow Treatment Adele Blanoc M.S., CCC-FLAME HARDENER [facility] Speech-Language Pathology [phone] Coding
--- NOTE | 2021-06-24 11:23 | PDOC.CMDIS ---
- If Service Date Differs Date of service: 06/24/21 Time of Service: 11:23 LACE Index Scoring Tool - Questions: Length of Stay (in days): 3 Acuity (Admit via E.D.?): Yes Comorbidities: PVD, Mild Liver/Renal Disease, Connective Tissue Disease, Metastatic Solid Tumor E.D. Visits: 1 - Answers: Total Score: 12 Risk of Readmission: High Risk Care Management Discharge Reason for Hospitalization: Uti, hypernatremia Discharge Plan: Discharge back to [facility] for continuation of rehab via facility W/C van. Follow up with community providers and discharge plan of care as prescribed. Patient/Family Education Needs: Review discharge instructions, limitations, medications and plan to follow up with community providers. ask me three. Services Needed at Discharge: Longterm Facility ([facility]), Transportation (via facility van )
--- NOTE | 2021-06-24 11:25 | W.PM.DS.N ---
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 Discharge Plan Disposition Patient Disposition: SNF (LEVEL 1) [facility] Condition: Improving Discharge Details Reason For Visit: UTI, Dehydration, ? PNA Admit Date/Time: 06/21/21 13:20 Admit Provider: Stuart Cross Attending Provider: Stuart Cross Primary Care Provider: Matti Li [facility] Course Hospital Course: This is a 75 year old female who [facility] with altered mental status/catatonia. Her work up in the ED showed UTI but otherwise unremarkable. she was started on scheduled ativan initially with little to no improvement. she was also started on ceftriaxone to treat UTI while cultures pending. cultures grew ecoli senstive to ceftriaxone. she will be down-stepped to keflex to complete a 7 day course. she was initally kept NPO as she was not awake enough to take PO. on hospital day 3 she awoke and was at her baseline, although physically quite weak and deconditioned. she was able to be evaluated by speech therapy who recommends ongoing speech therapy. she is tolerated pureed with mildly thick fluids. She should also continue with physical and occupational therapy for significant weakness. she was c/o right shoulder pain, we did obtain xray and CT that showed no dislocation or bony abnormalities. suspect shoulder strain. can use heat or ice, lidocaine patch if effective and apap. continue PT with further recommendations. she was also seen by palliative care and they will follow PRN. All her psychiatric medications were placed on hold and she has remained awake and stable with no behavioral issues. will defer when and if to resume to outpatient team. she has a neurology appointment 07/12/2021 She is now stable and safe for discharge back to [facility]. Home Meds and New Rx's Prescriptions: New cephalexin 500 mg capsule 500 mg PO BID Qty: 7 RF: 0 acetaminophen 325 mg capsule 650 mg PO QID Qty: 1 RF: 0 Continued coenzyme Q10 100 mg capsule 100 mg PO DAILY RF: 0 Fleet Enema 19-7 gram/118 mL enema 118 ml NV ONCE PRNRF: 0 bisacodyl [Dulcolax (bisacodyl)] 10 mg suppository 10 mg NV ONCE PRNRF: 0 latanoprost 0.005 % drops 1 drp ophthalmic (eye) QPM RF: 0 magnesium hydroxide [Dulcolax (magnesium hydroxide)] 400 mg/5 mL suspension 30 ml PO DAILY PRNRF: 0 docusate sodium 50 mg Tablet 100 mg PO BID RF: 0 Changed lorazepam 0.5 mg tablet 0.5 mg PO BID PRN PRNQty: 0 RF: 0 Discontinued carbidopa-levodopa [Sinemet] 25-100 mg tablet 1 tab PO TID Qty: 90 RF: 0 lorazepam 0.5 mg tablet 0.5 mg PO BID RF: 0 mirtazapine 15 mg tablet 15 mg PO QHS RF: 0 omeprazole 20 mg tablet,delayed release (DR/EC) 20 mg PO BID RF: 0 risperidone [Risperdal] 1 mg tablet 1 mg PO BID RF: 0 sertraline 50 mg tablet 50 mg PO DAILY RF: 0 Discharge Instructions Instructions: Urinary Tract Infection in Women (DC) Referrals: Caitlin Weber MD [ [facility] STAFF PHYSICIAN] - (as scheduled) Activity:: Activity as Tolerated Equipment/Supplies:: No Equipment Needed Diet:: As Tolerated Discharge Orders Discharge Orders: Discharge Order (Routine); Ordered 06/24/21 Ordered By: Mariah Flores DS: Summary Time Spent with Patient providing and/or coordinating discharge services: Greater than 30 minutes Status at Discharge Functional status at discharge: uses cane/walker Overall status at discharge: patient is progressing back to baseline Mental Status: mental status grossly normal Speech and Movement: speech and movement normal Mood: congruent mood Affect: normal affect Exam Const General: cooperative, no acute distress, frail appearing and ill appearing (older than stated age) chronically Nutritional Appearance: thin Orientation: alert, awake and oriented to person HENNJ Head: normal to inspection, normocephalic and atraumatic Mouth: moist mucous membranes abnormal (dry) Eyes General: appearance normal, both eyes and all related structures Chest Chest: normal inspection of the chest Resp Effort & Inspection: normal respiratory effort (respirations even and unlabored. ) Cardio Rate: regular rate Rhythm: regular rhythm GI Inspection: normal to inspection Palpation: soft Auscultation: normal bowel sounds Skin Lesions: lesion noted (mepilex on coccyx intact) Neuro General: patient alert, patient awake, oriented Patient Orientation: Person, moves all extremities and no focal motor deficits Extrem General: no pedal edema Right upper extremity: shoulder/upper arm (winces to abduction of right shoulder at 90 degrees) Psych Mental Status: mental status grossly normal Speech and Movement: speech and movement normal Mood: congruent mood Affect: normal affect DS: Data Vitals/I&O Vitals and I&O: Vital Signs Temperature 36.7 C 06/24/21 07:42 Temperature Source Tympanic 06/24/21 07:42 Pulse 73 06/24/21 07:42 Pulse Rhythm Regular 06/24/21 10:00 Pulse 85 06/19/21 15:16 Respiratory Rate 17 06/24/21 07:42 Respiratory Effort Splinting 06/24/21 10:00 Respiratory Depth Normal 06/24/21 02:33 Respiratory Pattern Normal 06/24/21 10:00 Blood Pressure 101/61 06/24/21 07:42 Blood Pressure Mean 78 06/19/21 15:16 Blood Pressure Position Supine 06/19/21 12:07 Pulse Oximetry 96 06/24/21 07:42 Oxygen Delivery Method Room Air 06/24/21 07:42 Oxygen Flow Rate 0 06/24/21 07:42 Pain Level 0 06/24/21 07:42 Comment 06/23/21 19:15 Intake & Output 06/23/21 06/23/21 06/24/21 11:59 23:59 11:59 Intake Total 100 / 1345 1245 / 1345 1260 / 1260 Balance 100 / 1345 1245 / 1345 1260 / 1260 Intake: IV 100 / 1300 1200 / 1300 1100 / 1100 Oral 45 / 45 160 / 160 Other: Urine Color Yellow Yellow Yellow Urine Appearance Clear Clear Urine Odor Normal Normal Normal Comment diaper changed diaper changed Stool Size Large Moderate Small Stool Characteristics Formed Soft Soft Brown Formed Voiding Methods Diaper Diaper Diaper Incontinent Incontinent Data Completed and Pending Labs on day of discharge: Labs from last 24 hours 06/24/21 06:20 Plt Count 176 Preliminary micro results at discharge 06/22/21 06:35 Blood Culture - Preliminary Blood NO GROWTH 48 HOURS 06/22/21 06:30 Blood Culture - Preliminary Blood NO GROWTH 48 HOURS 06/19/21 15:25 Blood Culture - Preliminary Blood NO GROWTH 96 HOURS 06/19/21 15:05 Blood Culture - Preliminary Blood Strep mitis/oralis PFSH All Active Problems (Updated 06/24/21 @ 11:25 by Mariah Flores NP) Right shoulder pain (Acute) DVT prophylaxis (Acute) Acute UTI (Acute) Bipolar 2 disorder, major depressive episode (Chronic) Dr Coates, [facility] office Health care proxy on file (Acute) Shuffling gait (Acute) Tremor (Acute) History of rhabdomyolysis (Acute) 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 of catatonia hospitalized for same in past Psychiatric illness (Chronic) 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 Brother No problems noted. Sister No problems noted. 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 Pets and animals: Yes Pets and animals: dog(s) Current gender identity: female What is your relationship status?: never How often do you talk on the phone with friends or family?: three or more times per week How often do you get together with friends or relatives?: twice per week Panel score (0-1 are the most socially isolated patients): 1 What type of physical activity do you participate in: none and sedentary lifestyle Special ayaka needs: No Seatbelt use: always Working smoke detector in home: Yes Fire extinguisher in home: Yes In current or past relationships, have you been: made to feel afraid Do you feel safe in your relationship?: Yes Additional Social history: Tatyana spoke very little. Her roommate says she says only a handful of words all day. When I was present, her sister Bryan called. She told me that she speaks to Tatyana every day. She explained that Tatyana had recently moved into a new apartment. She fell and was down for some hours. She went to the local hospital and was found to have rhabdo and SHEREEN. Tatyana falls frequently. Bryan asks if her Parkinson's Disease is due to psychiatric medications. Tatyana has struggled with mental illness for years. She has a psychiatrist. She has been hospitalized multiple times in the past. She is prone to episodes of catatonia. Bryan is very committed to advocating for her sister and providing as much care as she can, given limitations of a bad back. (NO lifting,etc).
[2021-06-24 12:07] VITALS: PULSE 85
--- NOTE | 2021-06-24 12:48 | IN_ITS ---
Date of service: 06/24/21 Time of Service: 10:48 PT Notes Visit Reasons: UTI, Dehydration, ? PNA Physical Therapy Inpatient Initial Evaluation Date: 06/24/21 Referring Doctor: Mariah Flores NP PT Orders: PT CONSULT: Eval & treat Precautions: Fall. Standard. Activity as tolerated. Patient Profile/Admitting Diagnosis: Alethea is a 75-year-old female resident of the [facility] admitted for management of hypernatremia, acute UTI, and elevated troponin who was deemed not appropriate for PT services due to catatonia. Her sensorium changed and a new referral was sent in today to determine appropriateness of skilled services to facilitate discharge planning. 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 Per care management notes, sister is actively involved in her care. Equipment Owned/DME: Unknown Subjective: Complained of pain in R upper extremity and toes on B sides when static standing was attempted. Objective: General Observation: Reclined in bedside chair with seat alarm in place. Trunk leaning to R observed. Mental Status: Alert and oriented to self. Able to follow single-step commands, requires repetition of 2 out of three instructions. Highly anxious about moving right arm. Pain: Significant pain in R upper extremity with palpation and movement. Static standing considerably limited because pain in B toes with weight bearing. ROM: Right Upper Extremity: Shoulder Flexion allows up to 90 degrees with active assitive range. Shoulder abduction 50% of available motion due to pain. Elbow flexion WFL. Wrist flexion WFL. Functional opening and closing of hand WFL. Left Upper Extremity: Shoulder Flexion about 50% of available motion. Shoulder abduction about 50% of available motion. Elbow flexion WFL. Wrist flexion WFL. Functional opening and closing of hand WFL. Right Lower Extremity: Hip flexion allows up to 30 degrees. Hip abduction allows up to 20 degrees. Knee flexion about 20 degrees. Ankle dorsiflexion about 10 degrees from a fully plantarflexed position. Ankle plantarflexion about 10 degrees. Left Lower Extremity: Hip flexion allows up to 30 degrees. Hip abduction allows up to 20 degrees. Knee flexion about 20 degrees. Ankle dorsiflexion about 10 degrees from a fully plantarflexed position. Ankle plantarflexion about 10 degrees. Strength: Right Upper Extremity: Grossly 3-/5 Left Upper Extremity: Grossly 3-/5 Right Lower Extremity: Grossly 2-/5 Left Lower Extremity: Grossly 2-/5 Sensation: Intact as to pain Bed Mobility/Transfers: Rolling: Moderate assist of 2 Supine to sit: Moderate assist of 2 Sit to supine: Moderate assist of 2 Sit to stand: Moderate assist of 2 using STEDY lift. Only able to tolerate about 30 seconds with Nurse Michi assisting PT Stand to sit: Moderate assist of 2 using STEDY lift Gait: Unable Balance: Sitting static Poor Sitting dynamic Poor Standing static Unable Standing dynamic Unable Special Tests: Mobility Limitations [facility] Basic Mobility Inpatient Short Form: Raw Score: 6 CMS Score: 100% Informed Consent/Education: Patient instructed in purpose of PT consult and plan of care. Assessment: Continue with mechanical lift for all transfer tasks. Pain in R upper extremity and bilateral toes limiting ability to stand up. Prognosis for functional progress undetermined at this time due to level of mobility dependence, pain report, and motivation level. Patient presents with clinical signs and symptoms consistent with current/admitting diagnoses that have resulted to mobility limitations, gait instability, generalized weakness, and impairment of motor control as demonstrated by the following impairment level findings: 1. Decreased strength to all major muscle groups 2. Impaired sitting/standing balance 3. Impaired activity tolerance 4. Pain in R UE and B toes Impairments are contributing to the following functional limitations: 1. Dependent bed mobility skills 2. Dependent with transfers 3. Inability to safely ambulate 4. Dependent with ADLs 5. Increased fall risk 6. Increased risk for skin breakdown Patient is assessed as a High complexity based on the following: History: 75 year old female with impairment level findings, functional limitations, and past medical history as indicated above Examination: Demonstrable impairment in strength, balance, and mobility level with underlying impairments and functional limitations as documented above Presentation: Evolving Decision Making: High complexity Goals: Goals x1 week 1. Supine-Sit: Min A 2. Sit-Supine: Min A 3. Sit-Stand: Mod A 4. Stand-Sit: Mod A Plan of Care/Treatment Plan: 1-2x/day, 7 days/week x 1 week. Plan of care has been reviewed with the DERRICK BOAT OPERATOR providing the service under Physical Therapy direction. Initiate Physical Therapy intervention for strengthening, bed mobility, transfers, gait, balance training, and use of assistive device. 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 Thank you for the opportunity to participate in the care of this patient. Debo Eastman PT, DPT, CLT [facility] [place], [place]
== END 2021-06-24 13:06 | disposition skilled nursing facility (03) | DRG 690 ==
LOC: ER 15:30 → MS 16:10
PROVIDERS: Family Medicine; Nurse Practitioner Family; Admitting Provider Internal Medicine; Emergency Provider Physician Assistant; PCP Family Medicine; Visit Provider Internal Medicine
DX: N39.0 Urinary tract infection, site not specified (principal); E87.0 Hyperosmolality and hypernatremia; F31.81 Bipolar II disorder; G21.19 Other drug induced secondary parkinsonism; R74.8 Abnormal levels of other serum enzymes; F06.1 Catatonic disorder due to known physiological condition; E86.0 Dehydration; T43.95XA Adverse effect of unspecified psychotropic drug, initial encounter; R29.6 Repeated falls; Z91.81 History of falling; K21.9 Gastro-esophageal reflux disease without esophagitis; H40.9 Unspecified glaucoma; Z85.3 Personal history of malignant neoplasm of breast; F41.9 Anxiety disorder, unspecified; E53.8 Deficiency of other specified B group vitamins; M81.0 Age-related osteoporosis without current pathological fracture; M25.511 Pain in right shoulder; M62.81 Muscle weakness (generalized); B96.20 Unspecified Escherichia coli [E. coli] as the cause of diseases classified elsewhere
CPT/HCPCS: 36415; 36416; 80048; 80053; 82962; 84145; 86704; 86709; 86803; 87040; 87077; 87081; 87340; 87635; 92526; 92610; 93005; 96361; 96365; 97163; 97530; 99285; J1650; 70450; 70551; 71045; 73030; 73200; 81003; 81015; 83605; 83735; 84132; 84443; 84484; 85025; 85049; 87086; 87186; 93010; 99220; 99225; 99232; 99233; 99239; G0378; J0131; J0696; J2060; J3480; J7060

== ENCOUNTER 2021-06-28 14:56 | Outpatient (REF) | payer MEDICARE, BC, SELFPAY ==
[2021-06-28 17:10] LABS: Abs Immature Grans 0.02 10^3/uL (0.0-0.06); Absolute Basophil Count 0.02 10^3/uL (0.0-0.2); Absolute Eosinophil Count 0.08 10^3/uL (0.0-0.7); Absolute Lymphocyte Count 1.54 10^3/uL (1.2-3.4); Absolute Monocyte Count 0.36 10^3/uL (0.1-0.8); Absolute Neutrophil Count 4.02 10^3/uL (1.2-6.7); Basophils % 0.3; Eosinophils % 1.3; HGB 12.1 g/dL (11.2-15.7); Immature Grans % 0.3; Lymphocytes % 25.5; MCH 24.1 pg (27.0-33.0); MCV 77.7 fL (80-95); Neutrophils % 66.6; Nucleated RBC 0 %; RBC 5.02 10^6/uL (3.93-5.22); RDW 20.7 % (11.7-14.6); RDW-SD 56.5 fL; WBC 6.04 10^3/uL (4.4-10.8)
[2021-06-28 17:11] LABS: Anion Gap 8.8 mmol/L (3-11); BUN 11 mg/dL (7-18); CO2 28.2 mmol/L (21.0-32.0); CREATININE 0.6 mg/dL (0.55-1.02); Calcium 8.1 mg/dL (8.5-10.1); Chloride 103 mmol/L (98-107); Glucose 115 mg/dL (74-106); Potassium 3.3 mmol/L (3.5-5.1); Sodium 140 mmol/L (136-145)
[2021-06-28 17:12] LABS: Platelet Count 447 10^3/uL (130-400)
[2021-06-28 17:32] LABS: Acanthocytes 1+; Anisocytosis 2+; Diff Comment Agrees w/ Instrument; Macrocytosis 1+; Microcytosis 1+; Ovalocytes 2+
== END 2021-06-28 14:57 | disposition home or self-care (01) ==
LOC: LBN 14:56
PROVIDERS: PCP Family Medicine; Visit Provider Nurse Practitioner Family
DX: N39.0 Urinary tract infection, site not specified (principal); G21.19 Other drug induced secondary parkinsonism
CPT/HCPCS: 80048; 85025

== ENCOUNTER → 2021-07-12 08:12 | Outpatient (BNVA) | payer MEDICARE, BC, SELFPAY | PROVIDERS: PCP Family Medicine; Referring Provider Family Medicine; Visit Provider Psychiatry & Neurology Neurology | DX: G20 Parkinson's disease (principal); R41.3 Other amnesia; G21.19 Other drug induced secondary parkinsonism; T43.595A Adverse effect of other antipsychotics and neuroleptics, initial encounter | CPT/HCPCS: 99215 ==

== ENCOUNTER 2021-07-13 15:51 | Outpatient (REF) | payer MEDICARE, BC, SELFPAY ==
[2021-07-13 17:00] LABS: Abs Immature Grans 0.02 10^3/uL (0.0-0.06); Absolute Basophil Count 0.03 10^3/uL (0.0-0.2); Absolute Eosinophil Count 0.08 10^3/uL (0.0-0.7); Absolute Lymphocyte Count 2.05 10^3/uL (1.2-3.4); Absolute Monocyte Count 0.41 10^3/uL (0.1-0.8); Absolute Neutrophil Count 3.74 10^3/uL (1.2-6.7); Basophils % 0.5; Eosinophils % 1.3; HCT 38.2 % (36.0-46.0); HGB 11.6 g/dL (11.2-15.7); Immature Grans % 0.3; Lymphocytes % 32.4; MCH 24.6 pg (27.0-33.0); MCHC 30.4 % (32.0-36.0); MCV 81.1 fL (80-95); MPV 9.6 fL (8.0-11.0); Monocytes % 6.5; Nucleated RBC 0 %; Platelet Count 474 10^3/uL (130-400); RBC 4.71 10^6/uL (3.93-5.22); RDW 23.2 % (11.7-14.6); RDW-SD 67.6 fL; WBC 6.33 10^3/uL (4.4-10.8)
[2021-07-13 17:36] LABS: Anion Gap 12.7 mmol/L (3-11); BUN 18 mg/dL (7-18); CO2 26.3 mmol/L (21.0-32.0); CREATININE 0.9 mg/dL (0.55-1.02); Calcium 9.1 mg/dL (8.5-10.1); Chloride 111 mmol/L (98-107); Glucose 116 mg/dL (74-106); Potassium 3.1 mmol/L (3.5-5.1); Sodium 150 mmol/L (136-145); Vitamin B12 770 pg/mL (193-986)
== END 2021-07-13 15:52 | disposition home or self-care (01) ==
LOC: LBN 15:51
PROVIDERS: PCP Family Medicine; Visit Provider Family Medicine
DX: E53.8 Deficiency of other specified B group vitamins (principal); E44.0 Moderate protein-calorie malnutrition
CPT/HCPCS: 80048; 82607; 85025

== ENCOUNTER 2021-08-06 17:37 | Outpatient (REF) | payer MEDICARE, BC, SELFPAY ==
[2021-08-08 12:30] LABS: COVID-19 RT-PCR UVMMC Result Negative (Negative)
== END 2021-08-06 17:38 | disposition home or self-care (01) ==
LOC: LBN 17:37
PROVIDERS: PCP Family Medicine; Visit Provider Family Medicine
DX: Z20.822 Contact with and (suspected) exposure to COVID-19 (principal)
CPT/HCPCS: U0003

== ENCOUNTER → 2021-08-09 14:34 | Outpatient (BNVA) | payer MEDICARE, BC, SELFPAY | PROVIDERS: PCP Family Medicine; Referring Provider Family Medicine; Visit Provider Psychiatry & Neurology Neurology | DX: G20 Parkinson's disease (principal); R41.3 Other amnesia; G21.19 Other drug induced secondary parkinsonism | CPT/HCPCS: 99214 ==

== ENCOUNTER 2021-08-11 00:36 | Outpatient (CLI) | payer MEDICARE, BC, SELFPAY ==
--- NOTE | 2021-08-11 14:30 | DI.RAD_ITS ---
Exam(s) RF MODIFIED SPEECH BA SWALLOW TECHNIQUE: Modified barium swallow was performed in conjunction with speech pathology. CONTRAST MATERIAL: Oral barium Oral water soluble contrast was administered. COMPARISON: No exams were available for comparison FINDINGS: Fluoroscopy was provided during swallowing mechanism study performed our department in conjunction wi the speech therapist. Please see that separate report. IMPRESSION: No evidence of aspiration or penetration. Total fluoroscopy time 2 minutes 24 seconds RADIATION DOSE DELIVERED: abby Garcia=4.28 mGy
--- NOTE | 2021-08-11 14:57 | ST.MBS ---
Date of Service Date of service: 08/11/21 Time of Service: 14:30 Modified Barium Swallow Study Findings: Videofluoroscopic Swallowing Evaluation (VFSE) / Modified Barium Swallow Study (MBSS) Speech Language Pathology Report HPI: Patient is a 75 year old female referred for VFSE/MBSS from Dr. Li given concerns for dysphagia per treating [employer] at [facility]; patient has also had recent visit with Dr Weber in Neurology. This clinician also spoke with treating [employer] for background re: current living environment, noted fluctuation in behaviors, specific dysphagia concerns to inform VFSE/MBSS today. Home Medications ?Medication ?Instructions ?Recorded ?Confirmed ?Type bisacodyl 10 mg rectal suppository 10 mg UT ONCE PRN 04/20/21 08/09/21 History coenzyme Q10 100 mg capsule 100 mg PO DAILY 04/20/21 08/09/21 History latanoprost 0.005 % eye drops 1 drp OPHTHALMIC (EYE) QPM? ml 04/20/21 08/09/21 History magnesium hydroxide 400 mg/5 mL 30 ml PO DAILY PRN? ml 04/20/21 08/09/21 History oral suspension ? sodium phosphates 19 gram-7 118 ml UT ONCE PRN 04/20/21 08/09/21 History gram/118 mL enema ? docusate sodium 100 mg PO BID 06/19/21 08/09/21 History acetaminophen 650 mg PO QID #1 cap 06/24/21 08/09/21 Rx lidocaine 5 % topical ointment 1 applic TOPICAL QID 08/09/21 08/09/21 History PFSH All Active Problems? Memory loss (Acute) Parkinsonism (Acute) Right shoulder pain (Acute) Acute UTI (Acute) Shuffling gait (Acute) Tremor (Acute) History of rhabdomyolysis (Acute) Psychiatric illness (Chronic) for many yearsFrequent falls (Acute) Malignant neoplasm of right breast (Chronic) in remissionAnxiety (Acute) Medical History? 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 2 mm subdural fluid collection along the left parietal occipital convexity.? 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 2. No evidence of an acute infarct. No previous VFSE/MBSS available for comparison. SUBJECTIVE: Patient arrives very anxious, stating I am so nervous, I just get so nervous; responded well to calm demeanor, reassurance re: review of sequenced steps for MBSS. Treating [employer] reports request made previously to provide patient with Ativan prior to MBS today. Patient followed most directions well with cueing/sequencing steps for MBS prior to study, agreeable to all trials except for barium tablet; Stated Manish and Bryan will be proud of me after study. IMPRESSIONS: Mild-moderate oral dysphagia; Oral phase deficits characterized by mild-moderate prespill to vallecular space (liquids - mild-moderate, solids - mild) prior to swallow onset with significantly prolonged oral preparation/bolus transport/manipulation ) for all trialed consistencies as evidenced by lingual pumping (x5-9); lingual control and mastication otherwise WFL with complete recollection/bolus formation; despite this, pharyngeal swallow onset is only minimally delayed as evidenced by bolus head at valleculae at the time of first movement of hyoid trajectory. Surprisingly minimal vallecular aggregation noted during prolonged mastication (vallecular aggregation deemed WFL). Pharyngeal phase intact; efficiency is grossly preserved, airway safety is also preserved; evidence of adequate laryngeal sensation. Penetration, aspiration not identified during study today. ? Of note, patient observed to tuck chin for all p.o. trials despite verbal cues otherwise to assess safety/efficiency of various postural maneuvers. Unable to assess pharyngeal contraction due to reduced visual field in AP view (patient reports she is unable to initiate swallow without her chin tucked).? Based upon treating [employer] verbal report and observation during study today, severity of overall dysphagia presentation is *likely to fluctuate, dependent on mental/psychological state and/or environmental/behavioral triggers. Patient noted to intake very small amount(s) of provided textures (max amount 8-10 mL at a time), so unable to comment on effect of larger bolus volumes at this time.? ? Recommend intermittent assessment of changes in behaviors/psychological state in context of patient's current environment during any po intake, especially those which are likely to affect dysphagia presentation; direct staff/caregiver/patient training by [employer] prior to formal diet change is highly encouraged given complex neurological history, fluctuation in behavior(s), and possible effects from environmental distractions. Patient appears to be at low risk for potential aspiration PNA and/or pulmonary compromise and low to moderate risk for malnutrition, low to moderate risk for dehydration, primarily based on behavioral factors with p.o. intake vs oropharyngeal swallow physiology. Diet modification and treatment with [employer] is indicated; non-oral nutrition is not indicated. Swallow prognosis is good-fair, given complex neurological history, fluctuation in behaviors, environmental factors, patient support, and pending patient/caregiver training in risk management as outlined, including use of trialed compensatory strategies as outlined above. Patient appears to be a good candidate for behavioral swallow rehabilitation. Specialist referrals: N/A Ancillary tests: N/A Diet texture recommendation: IDDSI Level Solid: Level 5 Minced & Moist, solid trial upgrades with [employer] Liquid: Level 0 thins, patient-initiated via cup sip with close supervision and monitoring for overt s.sx aspiration/discomfort *[employer] may trial adaptive device as appropriate (Provale cup, SafeStraw etc) if impulsive behaviors noted (ie large bolus volumes with overt s.sx aspiration/discomfort) Please see further details at www.iddsi.org Diet texture modification is per patient's preference; please adjust diet textures at patient's discretion & collaboration with care team. Risk Management: Allow/encourage time for full mastication prior to subsequent bite/sip Small bites, approx [id number] Small sips, approx 10 mL Alternate solids/liquids as able Behavioral reflux precautions, including upright position during + 90 mins after meals Control risk factors for aspiration pneumonia via (a) thorough oral hygiene & (b) maintaining physical mobility as tolerated PLAN: Therapy: Recommend subsequent session(s) with [employer] to review results of today's exam and develop treatment plan as appropriate, including patient/caregiver/staff training. Goal: TBD pending patient/caregiver interview Follow-up exam: N/A at this time, repeat study per treating [employer] discretion. Thank you for allowing me to take part in this patient's care. Please feel free to contact me with any questions/concerns. Kimmy Ferris MA [facility]-[employer] Speech Language Pathologist [phone] OBJECTIVE: Videofluoroscopic Swallow Evaluation (VFSE/MBSS) was conducted in the lateral and [id number] projections by Speech-Language Pathologist, in collaboration with Radiologist, to evaluate oropharyngeal swallow function. Anatomic view under fluoroscopy: WFL PO Barium Contrast Trials Oral barium water-soluble contrast was administered as follows: IDDSI Level 0 Varibar thin liquid (40% w/v) IDDSI Level 2 Varibar nectar thick/mildly thick liquid (40% w/v) IDDSI Level 3 Varibar thin honey/liquidised/moderately-thick (40% w/v) IDDSI Level 4 Varibar pudding/pureed/extremely thick (40% w/v) IDDSI Level 7 Regular Solid: 1/2 víctor cracker coated in 3 mL Varibar pudding PHYSIOLOGIC FINDINGS (1) Oral Impairment 1 Lip Closure 2-Escape from interlabial space or lateral juncture; no extension beyond wilma border 2 Tongue Control 0- Cohesive bolus between tongue to palatal seal 3 Bolus Preparation/Mastication 1- Slowed/prolonged* chewing/mashing with complete recollection *significantly prolonged mastication time for regular solid texture trials 4 Bolus Transport/Lingual Motion 3- Repetitive*/disorganized tongue motion *lingual pumping (x5-9) for all consistencies 5 Oral residue 1- Trace residue lining oral structures* Location floor of mouth, palate, tongue *cleared spontaneously with patient-initiated secondary swallow 6 Initiation of pharyngeal swallow 1- Bolus head in valleculae Pharyngeal Impairment 7 Velar Elevation 0- No bolus between soft palate and pharyngeal wall 8 Laryngeal Elevation 0- Complete superior movement of thyroid cartilage with complete approximation of arytenoids to epiglottic petiole 9 Anterior Hyoid Excursion 0- Complete anterior movement 10 Epiglottic Movement 0- Complete inversion 11 Laryngeal Vestibule Closure 0- Complete; no air/contrast in laryngeal vestibule Penetration not observed Aspiration not observed PAS / Overall 8-Point Penetration-Aspiration Scale (2) 1 - No material enters the airway Clinical Indicator(s) of Prandial/Postprandial Aspiration N/A 12 Pharyngeal Stripping Wave 0- Present; complete 13 Pharyngeal Contraction DNT; AP view obstructed by chin tuck posture despite cueing* *Suspect pharyngeal contraction is complete 14 PES/UES Opening 0- Complete distension and complete duration; no obstruction of flow 15 Tongue Base Retraction 1- Trace column of contrast between tongue base and posterior pharyngeal wall 16 Pharyngeal residue 1- Trace residue within or on pharyngeal structures Location [place] Pharyngeal Residue Severity Rating Scale(3) Valleculae II Trace 1-5% Trace coating Pharyngeal wall - trace Pyriform sinuses I None 0% No residue Esophageal Impairment 17 Esophageal Clearance in Upright Position 0-Complete clearance; esophageal coating Notes This study was performed for interpretation only of the oropharyngeal and pharyngoesophageal domains of swallowing, and is not intended to diagnose any other radiologic abnormalities or substitute for a formal esophagram study. ELIZABETH: (4) LEVEL 4 - Full PO: modified diet and/or independence - Mild-moderate dysphagia; Intermittent supervision/cueing and/or 1 or 2 consistencies restricted Trialed Compensatory Strategies & Outcome: Maneuvers Successful/Unsuccessful (+/-) Postures Successful/Unsuccessful (+/-) 3 second Preparatory Set Chin Tuck Posture + Cough Posterior Head tilt Reflexive + Cued Throat Clear Head Tilt to Reflexive Left Cued Right Saliva swallow x[1] + Head Turn/Rotation to Supraglottic Swallow Left Super-supraglottic Swallow Right Bolus Modifications Successful/Unsuccessful (+/-) Delivery/Alternating Consistencies - Wash with [] Delivery/Via Straw Reduced Volume Reduced Rate of Intake Increased Viscosity Other: Coding CPT Codes MOTION FLUOROSCOPY/SWALLOW - 37894 ([id number]) 1: Bonny Soto et al. ?MBS measurement tool for swallow impairment--MBSImp: establishing a standard.? Dysphagia vol. 23,4 (2008): 392-405. doi:10.1007/i06157-909-6291-0 2: (Fanny, et al, 1996) 3: (Daniel et al, 2015) 4: The Dysphagia Outcome and Severity Scale is a 7-point scale developed to systematically rate the functional severity of dysphagia based on objective assessment and make recommendations for diet level, independence level, and type of nutrition.
[2021-08-11] MEDS: Barium Sulfate 81% w/w for Oral Suspension 148 GM BTL 70 GM PO (15:10)
[2021-08-11] MEDS: Barium Sulfate 40% W/V 1500 CPS 250 ML BTL PO (15:12)
[2021-08-11] MEDS: Barium Sulfate Oral Paste 40% W/V 230 ML TUBE 13 ML PO ×2 (15:13→15:17)
== END 2021-08-11 00:56 ==
PROVIDERS: PCP Family Medicine; Visit Provider Speech-Language Pathologist
DX: R13.12 Dysphagia, oropharyngeal phase (principal)
CPT/HCPCS: 92611; 74221

== ENCOUNTER 2021-08-13 02:52 | Emergency (ER) | payer MEDICARE, BC, SELFPAY ==
[2021-08-13 02:54] VITALS: BP 156/92; PULSE 73; RESP 18; TEMP 36.6
--- NOTE | 2021-08-13 03:00 | DI.RAD_ITS ---
Exam(s) XR RIBS RT W PA LAT CHEST EXAM: XR RIBS RT W PA LAT CHEST CLINICAL HISTORY: pain s/p fall TECHNIQUE: 2D digital imaging was performed. COMPARISON: CR,XR XR CHEST 1V IN DI DEPT from 06/19/2021 FINDINGS: MEDIASTINUM: Normal. HEART: Normal. PULMONARY VASCULATURE: Normal. LUNGS: There is a rounded opacity in the right lung base medially. There is also an irregular small opacity projected over the left 6th rib laterally. No areas of consolidation are seen. PLEURAL SPACE: No pleural effusion or pneumothorax. BONE:Normal. RIGHT RIBS: There is a mildly displaced fracture of the anterolateral aspect of the right 9th rib. OTHER FINDINGS:Surgical clip is seen in the soft tissues of the lateral right chest wall. IMPRESSION: 1. Rounded opacity in the right lung base medially. Irregular opacity in the left upper lobe lateral ly. These areas should be further evaluated with a CT scan of the chest. 2. Mildly displaced right 9th rib fracture. DATA REPOSITORY: RADIATION DOSE DELIVERED:
--- NOTE | 2021-08-13 03:03 | W.ED.GENAD ---
Discharge Plan Disposition Patient Disposition: SNF (LEVEL 1) [facility] Condition: Stable Discharge Details Clinical Impression: Right rib fracture Primary Care Provider: Matti Li ED Provider: Heriberto Baker Home Meds and New Rx's Prescriptions: Continued lidocaine 5 % ointment 1 applic topical QID 0RF coenzyme Q10 100 mg capsule 100 mg PO DAILY 0RF Fleet Enema 19-7 gram/118 mL enema 118 ml KS ONCE PRN0RF bisacodyl [Dulcolax (bisacodyl)] 10 mg suppository 10 mg KS ONCE PRN0RF latanoprost 0.005 % drops 1 drp ophthalmic (eye) QPM 0RF magnesium hydroxide [Dulcolax (magnesium hydroxide)] 400 mg/5 mL suspension 30 ml PO DAILY PRN0RF Rx Instructions: Give 30 ml for by mouth as needed for constipation once daily for no BM. docusate sodium 50 mg Tablet 100 mg PO BID 0RF acetaminophen 325 mg capsule 650 mg PO QID Qty: 1 0RF lysine 500 mg Capsule 500 mg PO DAILY 0RF lorazepam 0.5 mg tablet 0.5 mg PO PRN PRN0RF vitamin B complex Capsule 1 cap PO DAILY 0RF Discharge Instructions Instructions: Rib Fracture (ED) Additional Instructions: your xray showed a rib fracture of your 9th rib take tylenol and ibuprofen as needed for pain and you can also try lidocaine patches followu p with your primary care provider within 1 week use the incentive spirometer once an hour while awake if you feel more ill, have severe worsening pain or fever return to the emergency department Medical Decision Making 75 yo female with hx of drug induced parkinson's who resides at [facility] and rehab comes in with ems after a fall. She was walking to the bathroom barefoot when she slipped and fell landing on her right side. She has full recall of events and denies loc or preceding symptoms to the fall. She denies hitting her head. She has pain in with right lateral chest in the mid axillary line and on exam has bruising over the 3-6 ribs in this area and tenderness. She is caox4 and denies headache and has no signs of trauma to the head. She has no midline c spine tenderness, perrl, eomi, no other chest tenderness, no abdominal tenderness or back tenderness. No pain in the extremities with full rom, does have 2cm right posterior distal forearm skin tear with no pain and also 2cm left sided skin tear over the mid anterior humerus. Suspect chest contusion but will xray to further evaluate. Given full recall of events and no head trauma nor pain elsewhere do not feel labs or other imaging at present time indicated. xray shows 9th rib fracture otherwise no acute findings, she feels better after ibuprofen, tylenol and lidocaine patch. Given stable vitals and one rib fracture and resides in a setting she is observed feel she can be discharged with incentive spirometer. Advised to f/u with pcp and return precautions given Differential Diagnosis Differential Diagnosis: rib fracture, rib contusion, ptx Medical Records Medical records reviewed: Yes I reviewed the patient's medical records. Imaging Data Radiologic Study: Radiologist's impression: IMPRESSION: 1. Mildly displaced right 9th rib fracture laterally. 2. Minimal residual patchy infiltrate left upper lobe laterally, possibly fibrosis rather than residual/recurrent pneumonia. 3. Otherwise no acute process. HPI General Mode of arrival: EMS. Date/Time Provider Initiated Documentation: 08/13/21 02:58. Limitations to Documentation: no limitations. Information obtained by: patient. History of Present Illness 75 year old F presents to the emergency department with the chief complaint of right sided rib pain, described as moderate, with intensity rated at 6. Quality is described as aching, and is localized to the chest. Patient reports no radiation. Patient started experiencing this hour(s) (1) and it has been constant. improves with No relieving factors improve symptom(s), No exacerbating factors reported . Patient notes no other symptoms.. Patient did receive the following treatments prior to arrival, none Related Data Home Medications Medication Instructions Recorded Confirmed bisacodyl 10 mg rectal suppository 10 mg KS ONCE PRN 04/20/21 08/13/21 (Dulcolax (bisacodyl)) coenzyme Q10 100 mg capsule 100 mg PO DAILY 04/20/21 08/13/21 latanoprost 0.005 % eye drops 1 drp OPHTHALMIC (EYE) QPM ml 04/20/21 08/13/21 magnesium hydroxide 400 mg/5 mL 30 ml PO DAILY PRN ml 04/20/21 08/13/21 oral suspension (Dulcolax (magnesium hydroxide)) sodium phosphates 19 gram-7 118 ml KS ONCE PRN 04/20/21 08/09/21 gram/118 mL enema (Fleet Enema) docusate sodium 50 mg tablet 100 mg PO BID 06/19/21 08/13/21 acetaminophen 325 mg capsule 650 mg PO QID #1 cap 06/24/21 08/13/21 lidocaine 5 % topical ointment 1 applic TOPICAL QID 08/09/21 08/13/21 lorazepam 0.5 mg tablet 0.5 mg PO PRN PRN 08/13/21 08/13/21 lysine 500 mg capsule 500 mg PO DAILY 08/13/21 08/13/21 vitamin B complex 1 cap PO DAILY 08/13/21 08/13/21 Previous Rx's Medication Instructions Recorded acetaminophen 325 mg capsule 650 mg PO QID #1 cap 06/24/21 Allergies Allergy/AdvReac Type Severity Reaction Status Date / Time erythromycin base Allergy Intermediate Verified 08/13/21 03:12 ragweed pollen Allergy Intermediate Verified 08/13/21 03:12 Sulfa (Sulfonamide Allergy Intermediate Verified 08/13/21 03:12 Antibiotics) General Stated Complaint: Chest/Rib RADHA: 4 Review of Systems All systems reviewed & are unremarkable except as noted in HPI and below Constitutional Constitutional: Denies chills, Denies fever(s) and Denies weakness Eyes Eyes: Denies loss of vision Respiratory Respiratory: Denies cough Gastrointestinal Gastrointestinal: Denies abdominal pain, Denies nausea and Denies vomiting Neurologic Neurologic: Denies loss of vision and Denies weakness PFSH All Active Problems (Updated 08/13/21 @ 04:50 by Heriberto Baker MD) Right rib fracture (Acute) Memory loss (Acute) Parkinsonism (Acute) Right shoulder pain (Acute) Acute UTI (Acute) Shuffling gait (Acute) Tremor (Acute) History of rhabdomyolysis (Acute) Psychiatric illness (Chronic) for many years Frequent falls (Acute) Malignant neoplasm of right breast (Chronic) in remission Anxiety (Acute) Medical History Bipolar 2 disorder, major depressive episode Dr Coates, [facility] office 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 Brother No problems noted. Sister No problems noted. 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 Pets and animals: Yes Pets and animals: dog(s) Current gender identity: female What is your relationship status?: never How often do you talk on the phone with friends or family?: three or more times per week How often do you get together with friends or relatives?: twice per week Panel score (0-1 are the most socially isolated patients): 1 What type of physical activity do you participate in: none and sedentary lifestyle Special ayaka needs: No Seatbelt use: always Working smoke detector in home: Yes Fire extinguisher in home: Yes In current or past relationships, have you been: made to feel afraid Do you feel safe in your relationship?: Yes Additional Social history: Tatyana spoke very little. Her roommate says she says only a handful of words all day. When I was present, her sister Bryan called. She told me that she speaks to Tatyana every day. She explained that Tatyana had recently moved into a new apartment. She fell and was down for some hours. She went to the local hospital and was found to have rhabdo and SHEREEN. Tatyana falls frequently. Bryan asks if her Parkinson's Disease is due to psychiatric medications. Tatyana has struggled with mental illness for years. She has a psychiatrist. She has been hospitalized multiple times in the past. She is prone to episodes of catatonia. Bryan is very committed to advocating for her sister and providing as much care as she can, given limitations of a bad back. (NO lifting,etc). Exam Const General: no acute distress Orientation: alert HENMI Head: normal to inspection Ears: external ears normal General nose exam: external nose normal Mouth: moist mucous membranes Eyes General: appearance normal, both eyes and all related structures Neck Neck: normal visual inspection Chest Chest: tenderness Resp Effort & Inspection: normal respiratory effort and able to speak in complete sentences Cardio Rate: regular rate Skin General skin exam: no rashes or lesions noted Neuro General: patient alert and patient oriented x3 Extrem General: normal to inspection Psych Mental Status: mental status grossly normal Course Vital Signs Vital signs: Vital Signs Temperature 36.6 C 08/13/21 02:54 Pulse 73 08/13/21 02:54 Respiratory Rate 18 08/13/21 02:54 Blood Pressure 156/92 H 08/13/21 02:54 Temperature 36.6 C 08/13/21 02:54 Temperature Source Temporal Artery Scan 08/13/21 02:54 Pulse 73 08/13/21 02:54 Respiratory Rate 18 08/13/21 02:54 Respiratory Effort 08/13/21 03:00 Blood Pressure 156/92 H 08/13/21 02:54 Pain Level 7 08/13/21 02:54
[2021-08-13] MEDS: Lidocaine 5% Patch 1 PATCH TP (03:50)
[2021-08-13] MEDS: Ibuprofen 600 MG TAB PO (03:50)
--- NOTE | 2021-08-13 04:42 | DI.VRAD_ITS ---
PROCEDURE INFORMATION: Exam: XR Right Ribs Exam date and time: 08/13/2021 3:03 AM Age: 75 years old Clinical indication: Other: Fall, RT lateral rib pain TECHNIQUE: Imaging protocol: XR Right ribs. Views: 2 views. COMPAR[facility]19/[facility]21 2:25 PM FINDINGS: Bones/joints: Mildly displaced right 9th rib fracture laterally. No other obviously displaced right-sided rib fractures. No lytic or blastic lesions. Lungs: No pulmonary contusion. Pleural space: No pneumothorax. No pleural effusion. Soft tissues: Surgical clips right lateral chest wall. IMPRESSION: Mildly displaced right 9th rib fracture laterally. PROCEDURE INFORMATION: Exam: XR Chest Exam date and time: 08/13/2021 3:03 AM Age: 75 years old Clinical indication: Other: Fall, RT lateral rib pain TECHNIQUE: Imaging protocol: XR of the chest. Views: 2 views. COMPARISON: [facility] 06/19/2021 2:25 PM FINDINGS: Lungs: Minimal residual patchy infiltrate left upper lobe laterally, possibly fibrosis rather than residual/recurrent pneumonia. Lungs otherwise mildly hyperinflated but clear. No pulmonary contusion. Pleural spaces: No pleural effusion. No pneumothorax. Heart/Mediastinum: Cardiac size not enlarged. Central vessels unremarkable. Vasculature: Aortic atherosclerotic calcification. Aorta normal caliber without aneurysm. Bones/joints: Mildly displaced right 9th rib fracture laterally. No other obviously displaced rib fractures. Mild degenerative changes noted throughout the spine. No fracture or subluxation within the spine. No lytic or blastic lesions. Soft tissues: Surgical clip right lateral chest wall. IMPRESSION: 1. Mildly displaced right 9th rib fracture laterally. 2. Minimal residual patchy infiltrate left upper lobe laterally, possibly fibrosis rather than residual/recurrent pneumonia. 3. Otherwise no acute process. Dictated and Authenticated by: Tj Caputo MD. Ordering:BENJAMIN Louis MD
[2021-08-13 04:53] VITALS: BP 148/74; PULSE 88; RESP 18; TEMP 36.6; O2SAT 98
== END 2021-08-13 05:03 | disposition skilled nursing facility (03) ==
PROVIDERS: Emergency Provider Emergency Medicine; PCP Family Medicine
DX: S22.31XA Fracture of one rib, right side, initial encounter for closed fracture (principal); S51.811A Laceration without foreign body of right forearm, initial encounter; S41.112A Laceration without foreign body of left upper arm, initial encounter; W01.0XXA Fall on same level from slipping, tripping and stumbling without subsequent striking against object, initial encounter
CPT/HCPCS: 99283; 71046; 71100

== ENCOUNTER 2021-08-13 13:58 | Outpatient (REF) | payer MEDICARE, BC, SELFPAY ==
[2021-08-13 14:04] LABS: Abs Immature Grans 0.02 10^3/uL (0.0-0.06); Absolute Basophil Count 0.04 10^3/uL (0.0-0.2); Absolute Eosinophil Count 0.24 10^3/uL (0.0-0.7); Absolute Lymphocyte Count 1.85 10^3/uL (1.2-3.4); Absolute Monocyte Count 0.53 10^3/uL (0.1-0.8); Absolute Neutrophil Count 3.08 10^3/uL (1.2-6.7); Basophils % 0.7; Eosinophils % 4.2; HCT 31.5 % (36.0-46.0); HGB 9.7 g/dL (11.2-15.7); Immature Grans % 0.3; Lymphocytes % 32.1; MCH 27.1 pg (27.0-33.0); MCHC 30.8 % (32.0-36.0); MPV 9.6 fL (8.0-11.0); Monocytes % 9.2; Neutrophils % 53.5; Nucleated RBC 0 %; Platelet Count 390 10^3/uL (130-400); RBC 3.58 10^6/uL (3.93-5.22); RDW 21.7 % (11.7-14.6); RDW-SD 69.9 fL; WBC 5.76 10^3/uL (4.4-10.8)
[2021-08-13 14:08] LABS: ALT 26 U/L (14-59); AST 22 U/L (15-37); Albumin 2.7 g/dL (3.4-5.0); Alkaline Phosphatase 65 U/L (46-116); Anion Gap 11.9 mmol/L (3-11); BUN 12 mg/dL (7-18); Bilirubin, Total 0.3 mg/dL (0.2-1.0); CO2 21.1 mmol/L (21.0-32.0); CREATININE 0.8 mg/dL (0.55-1.02); Calcium 8.6 mg/dL (8.5-10.1); Chloride 110 mmol/L (98-107); Glucose 86 mg/dL (74-106); Potassium 3.3 mmol/L (3.5-5.1); Sodium 143 mmol/L (136-145); Total Protein 5.8 g/dL (6.4-8.2)
[2021-08-13 14:31] LABS: Hemoglobin A1C 4.9 % (<5.7)
== END 2021-08-13 13:59 | disposition home or self-care (01) ==
LOC: LBN 13:58
PROVIDERS: PCP Family Medicine; Visit Provider Nurse Practitioner Family
DX: E44.0 Moderate protein-calorie malnutrition (principal); E87.8 Other disorders of electrolyte and fluid balance, not elsewhere classified
CPT/HCPCS: 80053; 83036; 85025

== ENCOUNTER 2021-08-29 16:34 | Emergency (ER) | payer MEDICARE, BC, SELFPAY ==
[2021-08-29 16:35] VITALS: BP 117/69; PULSE 72; RESP 18; TEMP 36.8; O2SAT 97
[2021-08-29] MEDS: Lidocaine/Epinephri/Tetracaine Topical Gel 3 ML TP (16:48)
[2021-08-29] MEDS: LORazepam 0.5 MG TAB PO (16:49)
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
== END 2021-08-29 18:46 | disposition home or self-care (01) ==
PROVIDERS: Emergency Provider Nurse Practitioner Acute Care; PCP Family Medicine
DX: S81.812A Laceration without foreign body, left lower leg, initial encounter (principal); W22.8XXA Striking against or struck by other objects, initial encounter
CPT/HCPCS: 12004; 90471

== ENCOUNTER 2021-09-06 17:38 | Outpatient (REF) | payer MEDICARE, BC, SELFPAY ==
[2021-09-06 19:07] LABS: Abs Immature Grans 0.01 10^3/uL (0.0-0.06); Absolute Basophil Count 0.06 10^3/uL (0.0-0.2); Absolute Eosinophil Count 0.19 10^3/uL (0.0-0.7); Absolute Lymphocyte Count 1.88 10^3/uL (1.2-3.4); Absolute Monocyte Count 0.44 10^3/uL (0.1-0.8); Basophils % 1.2; Eosinophils % 3.8; HCT 31.7 % (36.0-46.0); HGB 9.7 g/dL (11.2-15.7); Immature Grans % 0.2; Lymphocytes % 37.8; MCHC 30.6 % (32.0-36.0); MCV 91.6 fL (80-95); Monocytes % 8.8; Neutrophils % 48.2; Nucleated RBC 0 %; Platelet Count 356 10^3/uL (130-400); RBC 3.46 10^6/uL (3.93-5.22); RDW 16.3 % (11.7-14.6); RDW-SD 54.9 fL; WBC 4.98 10^3/uL (4.4-10.8)
[2021-09-06 19:26] LABS: ALT 11 U/L (14-59); AST 12 U/L (15-37); Albumin 3.1 g/dL (3.4-5.0); Alkaline Phosphatase 83 U/L (46-116); Anion Gap 9.3 mmol/L (3-11); BUN 19 mg/dL (7-18); Bilirubin, Total 0.3 mg/dL (0.2-1.0); CO2 25.7 mmol/L (21.0-32.0); CREATININE 0.7 mg/dL (0.55-1.02); Calcium 8.6 mg/dL (8.5-10.1); Chloride 109 mmol/L (98-107); Glucose 101 mg/dL (74-106); Potassium 3.9 mmol/L (3.5-5.1); Sodium 144 mmol/L (136-145); Total Protein 6.3 g/dL (6.4-8.2)
== END 2021-09-06 17:39 | disposition home or self-care (01) ==
LOC: LBN 17:38
PROVIDERS: PCP Family Medicine; Visit Provider Family Medicine
DX: M62.81 Muscle weakness (generalized) (principal)
CPT/HCPCS: 80053; 85025

== ENCOUNTER 2021-09-12 13:36 | Outpatient (REF) | payer MEDICARE, BC, SELFPAY ==
[2021-09-12 14:06] LABS: HCT 31.9 % (36.0-46.0); HGB 9.8 g/dL (11.2-15.7); MCH 27.9 pg (27.0-33.0); MCHC 30.7 % (32.0-36.0); MCV 90.9 fL (80-95); MPV 10.1 fL (8.0-11.0); Platelet Count 311 10^3/uL (130-400); RBC 3.51 10^6/uL (3.93-5.22); RDW 15.3 % (11.7-14.6); RDW-SD 50.7 fL; WBC 5.19 10^3/uL (4.4-10.8)
[2021-09-12 14:09] LABS: Anion Gap 9.3 mmol/L (3-11); BUN 16 mg/dL (7-18); CO2 23.7 mmol/L (21.0-32.0); CREATININE 0.7 mg/dL (0.55-1.02); Calcium 8.9 mg/dL (8.5-10.1); Chloride 112 mmol/L (98-107); Glucose 82 mg/dL (74-106); Potassium 4.3 mmol/L (3.5-5.1); Sodium 145 mmol/L (136-145)
== END 2021-09-12 13:37 | disposition home or self-care (01) ==
LOC: LBN 13:36
PROVIDERS: PCP Family Medicine; Visit Provider Nurse Practitioner Family
DX: E87.0 Hyperosmolality and hypernatremia (principal)
CPT/HCPCS: 80048; 85027

== ENCOUNTER → 2021-09-28 09:35 | Outpatient (BNVA) | payer MEDICARE, BC, SELFPAY | PROVIDERS: PCP Family Medicine; Visit Provider Psychiatry & Neurology Neurology | DX: G20 Parkinson's disease (principal); R41.3 Other amnesia | CPT/HCPCS: 99214 ==

== ENCOUNTER → 2022-03-29 09:46 | Outpatient (BNVA) | payer MEDICARE, BC, SELFPAY | PROVIDERS: PCP Neuromusculoskeletal Medicine & OMM; Referring Provider Neuromusculoskeletal Medicine & OMM; Visit Provider Psychiatry & Neurology Neurology | DX: G20 Parkinson's disease (principal); R41.3 Other amnesia | CPT/HCPCS: 99214 ==

== ENCOUNTER → 2023-03-28 09:36 | Outpatient (BNVA) | payer MEDICARE, BC, SELFPAY | PROVIDERS: PCP Neuromusculoskeletal Medicine & OMM; Referring Provider Neuromusculoskeletal Medicine & OMM; Visit Provider Psychiatry & Neurology Neurology | DX: G20 Parkinson's disease (principal); R41.3 Other amnesia | CPT/HCPCS: 99214 ==

== ENCOUNTER → 2023-12-05 10:33 | Outpatient (BNVA) | payer MEDICARE, BC, SELFPAY | PROVIDERS: PCP Neuromusculoskeletal Medicine & OMM; Referring Provider Neuromusculoskeletal Medicine & OMM; Visit Provider Psychiatry & Neurology Neurology | DX: R41.3 Other amnesia (principal) | CPT/HCPCS: 99213 ==